=== PATIENT | male | born 1950 | race Caucasian/White ===

== ENCOUNTER 2018-03-11 09:18 | Inpatient (IN) ==
--- NOTE | 2018-03-11 09:27 | ED ---
HPI General Chief complaint: Stroke Alert Stated complaint: stoke alert Time Seen by Provider: 03/11/18 09:20 Source: patient and EMS Mode of arrival: EMS Limitations: physical limitation (Slurred speech) History of Present Illness HPI narrative: 67-year-old male patient with history of CAD hypertension, atrial fibrillation, presents to the ER today brought in by EMS because he was found on the side of the road, slurring his speech, left-sided weakness and decreased medical records specialist strength on the left side, and a stroke alert was called on scene. He states that he was fairly normal although not feeling well about 2 hours ago. He also complains of chest discomfort. He denies any fevers, vomiting, or other issues. He apparently had just come to visit [facility]. Related Data Home Medications Medication Instructions Recorded Confirmed atorvastatin 20 mg PO DAILY 03/11/18 03/11/18 diltiazem HCl 240 mg PO DAILY 03/11/18 03/11/18 gabapentin 300 mg PO TID 03/11/18 03/11/18 rivaroxaban [Xarelto] 20 mg PO DAILY 03/11/18 03/11/18 Allergies Allergy/AdvReac Type Severity Reaction Status Date / Time No Known Allergies Allergy Verified 03/11/18 09:31 Review of Systems ROS: all other systems reviewed are negative PMFSH History History Provided By: Patient Medical History Medical History High cholesterol (Acute) Afib (Acute) CAD (coronary artery disease) (Acute) HTN (hypertension) (Acute) Surgical History Surgical History Hx of shoulder surgery (Acute) Social History Social History Substance History: No History of Abuse Second Hand Smoke Exposure: No Smoking Status: Never smoker How Often Do You Have a Drink Containing Alcohol: Never Recent Travel in [facility] within the Last 8 Weeks: No Recent Out of Country Travel within the Last 8 Weeks: No Exam Narrative Exam Narrative: GENERAL: Well-developed elderly male patient currently in moderate distress. Awake, alert, oriented x3. Slurred speech. SKIN: Focused skin assessment warm/dry. HEAD: Atraumatic. Normocephalic. EYES: Pupils equal and round. No scleral icterus. No injection or drainage. ENT: No nasal bleeding or discharge. Mucous membranes pink and moist. NECK: Trachea midline. No JVD. CARDIOVASCULAR: Fast and irregularly irregular. Pulses are present and equal bilaterally. RESPIRATORY: No accessory muscle use. Clear to auscultation. Breath sounds equal bilaterally. GASTROINTESTINAL: Abdomen soft, non-tender, nondistended. Hepatic and splenic margins not palpable. MUSCULOSKELETAL: No obvious deformities. No clubbing. No cyanosis. No edema. NEUROLOGICAL: Awake and alert. Left facial droop. Left medical records specialist strength weakness. Slurred speech. PSYCHIATRIC: Appropriate mood and affect; insight and judgment normal. Course Initial Documented Vital Signs Temperature 97.8 F 03/11/18 09:18 Pulse Rate 138 H 03/11/18 09:18 Respiratory Rate 18 03/11/18 09:18 Blood Pressure 140/89 03/11/18 09:18 Pulse Oximetry 98 03/11/18 09:18 Last Documented Vital Signs Temperature 97.5 F L 03/11/18 11:30 Pulse Rate 98 H 03/11/18 11:30 Respiratory Rate 17 03/11/18 11:30 Blood Pressure 156/88 H 03/11/18 11:30 Pulse Oximetry 98 03/11/18 11:30 Medical Decision Making MDM Narrative Medical decision making narrative: On further questioning, patient admits that he is on Pradaxa and had taken it last night. As such, he would not be a TPA candidate. Patient is seen in the ER room with Dr. Mckeon and further testing including a CTA of the head neck have been ordered as well along with stroke protocol. In addition, considering that the patient is also complaining of chest pain and is having neurological deficits, there is concern of a dissection. I have also ordered a CT of the aorta out to rule out dissection as well. Initial CTs of the head and neck did not show obvious signs of causes of current neurological symptoms and case had been discussed with Dr. Kowalski who states that if a dissection is in consideration, the patient would need a second dose of contrast in order to get a CTA. Considering the possibility of morbidity and mortality of a missed dissection, further testing was done to rule out this acute process. At this point, patient will need further care, MRIs, workup, and case has been discussed with family practice resident service for admission. I have made them aware of the pending CTA of the aorta as well. Medical Screen Exam Complete: Yes Emergency Medical Condition: Yes Differential Diagnosis Differential Diagnosis: CVA versus ICH versus ACS versus dysrhythmias Lab Data Lab results reviewed: Yes I reviewed the patient's lab results. Result diagrams: 03/11/18 09:30 03/11/18 09:20 Lab Results 03/11/18 03/11/18 03/11/18 Range/Units 09:20 09:20 09:20 WBC (4.0-11.0) th/mm3 RBC (4.50-5.90) mil/mm3 Hgb (13.0-17.0) gm/dL POC Hgb (Calc) 13.9 (13.0-17.0) g/dL Hct (39.0-51.0) % POC Hct 41.0 (39-51.0) % MCV (80.0-100.0) fL MCH (27.0-34.0) pg MCHC (32.0-36.0) % RDW (11.6-17.2) % Plt Count (150-450) th/mm3 MPV (7.0-11.0) fL Neut % (Auto) (16.0-70.0) % Lymph % (Auto) (9.0-44.0) % Jefferson % (Auto) (0.0-8.0) % Eos % (Auto) (0.0-4.0) % Baso % (Auto) (0.0-2.0) % Neut # (Auto) (1.8-7.7) th/mm3 Lymph # (Auto) (1.0-4.8) th/mm3 Jefferson # (Auto) (0.0-0.9) th/mm3 Eos # (Auto) (0.0-0.4) th/mm3 Baso # (Auto) (0.0-0.2) th/mm3 WBC Differential Differential Comment ESR (0-20) mm/hr PT (9.8-11.6) sec INR Ratio APTT (23.4-31.7) sec POC Sodium 140 (137-144) mmol/L Sodium 140 (136-145) meq/L POC Potassium 3.7 (3.6-5.0) mmol/L Potassium 3.7 (3.5-5.1) meq/L POC Chloride 107 (102-111) mmol/L Chloride 106 (98-107) meq/L Carbon Dioxide 20.0 L (21.0-32.0) meq/L Anion Gap 14 (5-15) meq/L POC BUN 22 H (5-21) mg/dL BUN 27 H (7-18) mg/dL Creatinine 1.22 (0.60-1.30) mg/dL POC Creatinine 1.2 (0.6-1.3) mg/dL Estimated GFR 59 L (>89) mL/min POC Glucose 114 H (68-110) mg/dL Random Glucose 115 H (74-106) mg/dL Calcium 8.8 (8.5-10.1) mg/dL Total Creatine Kinase 200 (39-308) U/L CK-MB (CK-2) 2.0 (0.5-3.6) ng/mL Troponin I Less than 0.02 L (0.02-0.05) ng/mL Vitamin B12 359 (193-986) pg/mL TSH 0.614 (0.358-3.740) uIU/mL Free T4 1.16 (0.76-1.46) ng/dL 03/11/18 03/11/18 03/11/18 Range/Units 09:30 09:30 09:30 WBC 5.8 (4.0-11.0) th/mm3 RBC 4.48 L (4.50-5.90) mil/mm3 Hgb 13.8 (13.0-17.0) gm/dL POC Hgb (Calc) (13.0-17.0) g/dL Hct 41.5 (39.0-51.0) % POC Hct (39-51.0) % MCV 92.7 (80.0-100.0) fL MCH 30.7 (27.0-34.0) pg MCHC 33.2 (32.0-36.0) % RDW 14.7 (11.6-17.2) % Plt Count 168 (150-450) th/mm3 MPV 8.4 (7.0-11.0) fL Neut % (Auto) 76.0 H (16.0-70.0) % Lymph % (Auto) 12.7 (9.0-44.0) % Jefferson % (Auto) 10.5 H (0.0-8.0) % Eos % (Auto) 0.2 (0.0-4.0) % Baso % (Auto) 0.6 (0.0-2.0) % Neut # (Auto) 4.4 (1.8-7.7) th/mm3 Lymph # (Auto) 0.7 L (1.0-4.8) th/mm3 Jefferson # (Auto) 0.6 (0.0-0.9) th/mm3 Eos # (Auto) 0.0 (0.0-0.4) th/mm3 Baso # (Auto) 0.0 (0.0-0.2) th/mm3 WBC Differential . Differential Comment Auto diff final ESR 8 (0-20) mm/hr PT 11.3 (9.8-11.6) sec INR 1.1 Ratio APTT 30.0 (23.4-31.7) sec POC Sodium (137-144) mmol/L Sodium (136-145) meq/L POC Potassium (3.6-5.0) mmol/L Potassium (3.5-5.1) meq/L POC Chloride (102-111) mmol/L Chloride (98-107) meq/L Carbon Dioxide (21.0-32.0) meq/L Anion Gap (5-15) meq/L POC BUN (5-21) mg/dL BUN (7-18) mg/dL Creatinine (0.60-1.30) mg/dL POC Creatinine (0.6-1.3) mg/dL Estimated GFR (>89) mL/min POC Glucose (68-110) mg/dL Random Glucose (74-106) mg/dL Calcium (8.5-10.1) mg/dL Total Creatine Kinase (39-308) U/L CK-MB (CK-2) (0.5-3.6) ng/mL Troponin I (0.02-0.05) ng/mL Vitamin B12 (193-986) pg/mL TSH (0.358-3.740) uIU/mL Free T4 (0.76-1.46) ng/dL Imaging Data Attestation: I personally reviewed and interpreted this imaging study as follows : Radiologist's impression: Head CT 03/11/18 09:21 CONCLUSION: 1. The exam demonstrates small areas of decreased attenuation involving the brainstem and hailey most consistent with subacute areas of cortical infarct. 2. No acute intracranial hemorrhage identified. Report was called by [Dr. Kowalski to Dr. Aguila.at 9:45 ] Head CTA 03/11/18 09:27 CONCLUSION: 1. No large vessel occlusions. 2. Suspect more proximal right vertebral artery hemodynamically significant lesion. Report was called by Dr. Martinez to Dr. Mckeon at 0958 AM. Neck CTA 03/11/18 09:27 CONCLUSION: 1. Bilateral calcified carotid plaques without evidence of hemodynamically significant stenosis. 2. Dominant left vertebral artery. 3. No flow in the right vertebral artery. Chest X-Ray 03/11/18 09:29 CONCLUSION: 1. No acute abnormality. Discharge Plan Discharge Disposition Patient Disposition: 30 Still Patient Discharge Condition Condition: Critical Discharge Details Anticipated Discharge Date: 03/11/18 Diagnosis: Acute CVA (cerebrovascular accident) Physicians Team ED Provider: Mingo Mclaughlin Primary Care Provider: UNKNOWN, Rxs /Orders / Referrals /Forms Prescriptions: No Action atorvastatin 20 mg Tablet 20 mg PO DAILY RF: 0 diltiazem HCl 240 mg Capsule,Extended Release 24 Hr 240 mg PO DAILY RF: 0 gabapentin 300 mg Capsule 300 mg PO TID RF: 0 rivaroxaban [Xarelto] 20 mg Tablet 20 mg PO DAILY RF: 0 Status ED Status: With Doctor
--- NOTE | 2018-03-11 10:02 | CT ---
EXAM DATE: 03/11/2018 9:52 AM EST AGE/SEX: 67 years / Male INDICATIONS: Stroke alert, left sided weakness CLINICAL DATA: This is the patient's initial encounter. Patient reports that signs and symptoms have been present for 1 day and indicates a pain score of 0/10. MEDICAL/SURGICAL HISTORY: Cerebrovascular disease. Hypertension. None. RADIATION DOSE: 10.5 CTDI (mGy) ; Combined studies COMPARISON: [facility] [place], [place] HEAD W/O CONTRAST, 03/11/2018. . TECHNIQUE: Volumetric scanning was performed using a multi-row detector CT scanner during bolus infu jose of 95 ml Visipaque 320 (iodixanol) nonionic water-soluble contrast as a cumulative dose for [facility] tiple exams. The data was post processed with a variety of visualization algorithms including full volume maximum intensity projection, multi-planar sliding thin slab reformation, curved planar reform ation, and surface rendering techniques. Using automated exposure control and adjustment of the mA a nd/or kV according to patient size, radiation dose was kept as low as reasonably achievable to obtain optimal diagnostic quality images. DICOM format image data is available electronically for review a nd comparison. FINDINGS: Anterior Circulation: Intracranial Carotid Arteries: Patent. YUSUF: Hypoplastic right A1 segment. There is no evidence for aneurysm, vessel truncation or stenosis, and no evidence for vascular malformation. MCA: There is no evidence for aneurysm, vessel truncation or stenosis, and no evidence for vascular m alformation. Posterior Circulation: Distal Vertebral Arteries: Dominant left vertebral artery. The right vertebral artery is not well dem onstrated proximal to the vertebrobasilar junction. Basilar Artery: There is no evidence for aneurysm, vessel truncation or stenosis, and no evidence for vascular malformation. CRYPTOGRAPHY TEACHER and Cerebellar Branches: origin of the right CRYPTOGRAPHY TEACHER. There is no evidence for aneurysm, vessel truncation or stenosis, and no evidence for vascular malformation. CONCLUSION: 1. No large vessel occlusions. 2. Suspect more proximal right vertebral artery hemodynamically significant lesion. Report was called by Dr. Martinez to Dr. Mckeon at 0958 AM. Electronically signed by: Reese Puga MD 03/11/2018 10:00 AM EST
[2018-03-11 10:04] LABS: Anion Gap 14 meq/L (5-15); Blood Urea Nitrogen 27 mg/dL (7-18); Calcium 8.8 mg/dL (8.5-10.1); Chloride 106 meq/L (98-107); Glomerular Filtration Rate 59 mL/min (>89); Glucose,Random 115 mg/dL (74-106); Potassium 3.7 meq/L (3.5-5.1); Sodium 140 meq/L (136-145)
[2018-03-11 10:09] LABS: Creatine Kinase 200 U/L (39-308)
--- NOTE | 2018-03-11 10:09 | CT ---
EXAM DATE: 03/11/2018 9:37 AM EST AGE/SEX: 67 years / Male INDICATIONS: Stroke alert, left sided weakness CLINICAL DATA: This is the patient's initial encounter. Patient reports that signs and symptoms have been present for 1 day and indicates a pain score of 0/10. MEDICAL/SURGICAL HISTORY: Cerebrovascular disease. Hypertension. None. RADIATION DOSE: 56.35 CTDI (mGy) COMPARISON: [facility], CTA THOR ABD AORTA W CONTRAST W 3D, 03/11/2018. . TECHNIQUE: CT of the head without contrast. Using automated exposure control and adjustment of the mA and/or kV according to patient size, radiation dose was kept as low as reasonably achievable to ob tain optimal diagnostic quality images. DICOM format image data is available electronically for revi ew and comparison. FINDINGS: The ventricular system is normal in size and configuration. There is no acute intracranial hemorrhage . There is decreased attenuation in the periventricular white matter most consistent with advanced mi crovascular ischemic demyelinative change. No mass lesion is identified. No abnormal extra-axial flui d collections are seen. Imaging through the posterior fossa demonstrates areas of decreased attenuation involving the central aspect of the brainstem and a small area within the left side of the hailey. These findings would be m ost consistent with subacute areas of cortical infarct. CONCLUSION: 1. The exam demonstrates small areas of decreased attenuation involving the brainstem and hailey most consistent with subacute areas of cortical infarct. 2. No acute intracranial hemorrhage identified. Report was called by [Dr. Kowalski to Dr. Aguila.at 9:45 ] Electronically signed by: Reji Kowalski MD 03/11/2018 10:07 AM EST
--- NOTE | 2018-03-11 10:13 | CT ---
EXAM DATE: 03/11/2018 10:07 AM EST AGE/SEX: 67 years / Male INDICATIONS: Stroke alert, left sided weakness CLINICAL DATA: This is the patient's initial encounter. Patient reports that signs and symptoms have been present for 1 day and indicates a pain score of 0/10. MEDICAL/SURGICAL HISTORY: Cerebrovascular disease. Hypertension. None. RADIATION DOSE: 10.5 CTDI (mGy) COMPARISON: [facility] [place] HEAD W CONTRAST W 3D, 03/11/2018. . TECHNIQUE: Volumetric scanning was performed using a multirow detector CT scanner during bolus infus ion of 95 ml Visipaque 320 (iodixanol) nonionic water-soluble contrast as a cumulative dose for mult iple exams. The data was postprocessed with a variety of visualization algorithms including full-vo lume maximum intensity projection, multiplanar sliding thin-slab reformation, curved-planar reformati on, and surface-rendering techniques. Using automated exposure control and adjustment of the mA and/ or kV according to patient size, radiation dose was kept as low as reasonably achievable to obtain op timal diagnostic quality images. DICOM format image data is available electronically for review and comparison. FINDINGS: Aortic Arch: There is a three-vessel origin of the great vessels from the aorta. No evidence of ost ial narrowing Right Carotid: Eccentric calcified plaque is identified in the proximal internal carotid artery. The common, external and internal carotid arteries are otherwise widely patent without significant steno sis. Left Carotid: Eccentric calcified plaque is identified in the left carotid bifurcation and proximal internal carotid artery. There is no evidence of significant stenosis. Vertebrals: The left vertebral artery is dominant. No flow is identified in the cervical segment of the right vertebral artery. Percent stenosis is calculated using the diameter of the stenotic region over the diameter of the nor mal distal internal carotid artery. CONCLUSION: 1. Bilateral calcified carotid plaques without evidence of hemodynamically significant stenosis. 2. Dominant left vertebral artery. 3. No flow in the right vertebral artery. Electronically signed by: Domenico Cnanon MD 03/11/2018 10:12 AM EST
[2018-03-11] MEDS ORDERED: Sod Chloride 0.9% Inj 1,000 ML IV.SIG SCH (10:15)
[2018-03-11 10:42] LABS: Baso % (Auto) 0.6 % (0.0-2.0); Eos % (Auto) 0.2 % (0.0-4.0); Hematocrit 41.5 % (39.0-51.0); Hemoglobin 13.8 gm/dL (13.0-17.0); Lymph # (Auto) 0.7 th/mm3 (1.0-4.8); Lymph % (Auto) 12.7 % (9.0-44.0); Mean Corpuscular HGB Conc 33.2 % (32.0-36.0); Mean Corpuscular Hemoglobin 30.7 pg (27.0-34.0); Mean Corpuscular Volume 92.7 fL (80.0-100.0); Mean Platelet Volume 8.4 fL (7.0-11.0); Mono # (Auto) 0.6 th/mm3 (0.0-0.9); Mono % (Auto) 10.5 % (0.0-8.0); Neut # (Auto) 4.4 th/mm3 (1.8-7.7); Platelet Count 168 th/mm3 (150-450); Red Blood Count 4.48 mil/mm3 (4.50-5.90); Red Cell Distribution Width 14.7 % (11.6-17.2); White Blood Count 5.8 th/mm3 (4.0-11.0)
[2018-03-11 10:49] LABS: INR 1.1 Ratio; Prothrombin Time 11.3 sec (9.8-11.6)
--- NOTE | 2018-03-11 10:54 | XR ---
EXAM DATE: 03/11/2018 10:41 AM EST AGE/SEX: 67 years / Male INDICATIONS: Stroke alert. CLINICAL DATA: This is the patient's initial encounter. Patient reports that signs and symptoms have been present for 1 day and indicates a pain score of Nonresponsive. MEDICAL/SURGICAL HISTORY: Cerebrovascular disease. Hypertension. None. COMPARISON: No prior exams available for comparison. FINDINGS: No significant new focal pleural or parenchymal opacities. The cardiomediastinal contours are unremar kable. Osseous structures are intact. CONCLUSION: 1. No acute abnormality. Electronically signed by: Reese Puga MD 03/11/2018 10:53 AM EST
--- NOTE | 2018-03-11 10:57 | MB ---
cc: Donald Mckeon MD DATE: 03/11/2018 HISTORY OF PRESENT ILLNESS: A 67-year-old right-handed man with hypertension, OK, on Xarelto for atrial fibrillation, which he does take and he says he has been taking every day, although initially said twice a day. He does have a card of Xarelto, a med card, and he says he has been taking it, and there is 1 missing there. He says he just threw out the other card because he had been taking them, so it appears that he has been compliant on that. He says he has some slight renal insufficiency. Nevertheless, about 2 hours ago he began to get weak on the left side, and he was evidently found on the sidewalk. He just came in town last night, on a bus, so he did not sleep anywhere locally last night. He is from [place], where he lives with his son. He does complain of some chest pain and a headache. He was found to have left-sided weakness. REVIEW OF SYSTEMS: He denied any CABG or stent, diabetes, hypercholesterolemia, hepatic, pulmonary disease, thyroid disease, lupus, ulcer, cancer, seizure. He tells me he has had 2 prior strokes with weakness on the left side, with almost full recovery. He can usually walk well. SOCIAL HISTORY: He is not a smoker or drinker. He lives with his son in [place]. FAMILY HISTORY: Negative cancer, seizure, or stroke. MEDICATIONS AT HOME: 1. Gabapentin 300 t.i.d. 2. Xarelto 20 a day. 3. Atorvastatin. 4. Diltiazem. ALLERGIES: NO KNOWN DRUG ALLERGIES. PHYSICAL EXAMINATION: Vital Signs: Atrial fibrillation with rapid ventricular response, 140/80, 18. Neck: There were no carotid bruits. Heart: Regular rate and rhythm. I did not detect a murmur. Neurologic: Pupils are equal. It is hard to say about his visual thomas, he appears not to see to the left, though he does not count properly to the right. His face, he actually moves the left side of his face a little bit more than the right. His tongue, he cannot really stick out for me due to tremors in his mouth. He moves his right side well with normal strength on the right upper and lower extremity. It is about 0/5 in the left upper and lower extremity. The left toe is down, the right is down. DTRs are absent throughout. Pinprick is diminished on the left side. He appears to have possibly some left neglect. Eyes are midline. LABORATORY DATA: Labs are pending. IMAGING STUDIES: A CAT scan of the brain shows some white matter changes, an old left anterior temporal encephalomalacia, whether it could have been an old stroke or a cyst, is unclear. No hyperdense MCA sign is seen. CTA is pending. IMPRESSION: It looks like a right middle cerebral artery infarct. We are doing a CTA now. He has been on Xarelto, so cannot get any IV TPA. I would put his NIH stroke scale at 15. MD ASH Ocasio/kevin , 09:40 AM , 09:46 AM
[2018-03-11 11:49] LABS: Free T4 (Free Thyroxine) 1.16 ng/dL (0.76-1.46); Thyroid Stimulating Hormone 0.614 uIU/mL (0.358-3.740)
[2018-03-11] MEDS ORDERED: Morphine Inj 4 MG/ML Vial IV.PUSH ONE (12:39)
[2018-03-11] MEDS ORDERED: Gadobutrol PF 10 MMOL/10 ML Vial (for RAD) IV.SIG ONE (13:11)
[2018-03-11] MEDS ORDERED: Bisacodyl 10 MG Supp RECTAL PRN (13:50)
--- NOTE | 2018-03-11 13:55 | P.HPFP ---
History of Present Illness Primary Care Physician: UNKNOWN <Artis Jung Junie - 03/12/18 22:45> UNKNOWN <Iam Tenorio Lidia - 03/11/18 13:55> Chief Complaint: evaluation for stroke <Iam Tenorio - 03/11/18 19:47> History of Present Illness: Patient is a 67-year-old male with past medical history of A. fib on Xarelto, prior VA and prior CVA and lower back pain presenting to the ED after suffering a fall and developing slurred speech and left-sided weakness. History limited to patient's ability to answer question due to slurred speech. Patient reports that he was walking and noticed pain on his head and then fell injuring his neck and back. After the fall patient noted to have slurred speech and left-sided weakness. Patient was found on the sidewalk. He is able to answer yes/no questions. He is alert and oriented x3. Endorses pain of left side of abdomen, neck, back, hips and shoulders. Denies any chest pain, fever, chills, dizziness, or seizures. Patient is very tearful and upset with current status. He reports he is not able to urinate and this is a new issue for him. Endorses blurry vision worse on left side. He reports he is not having any difficulties breathing and is able to tolerate secretions. Once patient arrived to the ED stroke alert was called. CT head was negative for bleeding. Of note patient is not a TPA candidate due to being on Xarelto. <Iam Tenorio Lidia - 03/11/18 19:47> - Diagnosis (1) Acute CVA (cerebrovascular accident) (2) Atrial fibrillation (3) Hypertension (4) Urinary retention (5) Back pain (6) Nutrition, metabolism, and development symptoms <Iam Tenorio Lidia - 03/11/18 18:54> (1) Left-sided weakness (2) Compression fracture (3) Urinary retention (4) Atrial fibrillation (5) Hypertension (6) Nutrition, metabolism, and development symptoms <Artis Jung Junie - 03/12/18 22:45> Inpatient Certification: I certify that the inpatient services were ordered in accordance with Medicare regulations governing the order. This includes certification that hospital inpatient services are reasonable and necessary and in the case of services not specified as inpatient-only under 42 CFR 419.22(n), that they are appropriately provided as inpatient services in accordance to with the 2-midnight benchmark under 43 CFR 412.3(e) <Artis Jung - 03/12/18 22:45> Review of Systems All other systems reviewed negative except as stated in HPI <Iam Tenorio 03/11/18 19:47> PMFSH - History History Provided By: Patient <Iam Tenorio 03/11/18 13:55> - Medical History Medical History: Medical History (Last Reviewed 03/11/18 @ 15:31 by Artis Carreon) High cholesterol Afib CAD (coronary artery disease) HTN (hypertension) <Artis Jung 03/12/18 22:45> Medical History (Last Reviewed 03/11/18 @ 15:31 by Artis Carreon) High cholesterol Afib CAD (coronary artery disease) HTN (hypertension) <Iam Tenorio 03/11/18 19:47> - Surgical History Surgical History: Surgical History (Last Reviewed 03/11/18 @ 15:31 by Artis Carreon) Hx of shoulder surgery <Artis Jung 03/12/18 22:45> Surgical History (Last Reviewed 03/11/18 @ 15:31 by Artis Carreon) Hx of shoulder surgery <Iam Tenorio 03/11/18 19:47> - Tobacco History Second Hand Smoke Exposure: No <Iam Tenorio 03/11/18 13:55> Smoking Status: Never smoker <Iam Tenorio 03/11/18 13:55> - Alcohol History How Often Do You Have a Drink Containing Alcohol: Never <Iam Tenorio 11/19 13:55> - Substance Use History Substance History: No History of Abuse <Iam Tenorio 03/11/18 13:55> - Travel History Recent Travel in the [place] Within the Last 8 Weeks: No <Iam Tenorio 13:55> Recent Travel Out of the Country Within the Last 8 Weeks: No <Iam Tenorio 03/11/18 13:55> - Immunization History Tetanus Immunization: >5 Years <Iam Tenorio 03/11/18 13:55> Medications and Allergies Allergies Allergy/AdvReac Type Severity Reaction Status Date / Time No Known Allergies Allergy Verified 03/11/18 09:31 <Artis Jung Junie - 03/12/18 22:45> Home Medications Medication Instructions Recorded Confirmed Type atorvastatin 20 mg PO DAILY 03/11/18 03/11/18 History diltiazem HCl 240 mg PO DAILY 03/11/18 03/11/18 History gabapentin 300 mg PO TID 03/11/18 03/11/18 History rivaroxaban [Xarelto] 20 mg PO DAILY 03/11/18 03/11/18 History <Artis Jung - 03/12/18 22:45> Active Medications: Active Medications Al Hydroxide/Mg Hydroxide (Milk Of Magnesia Liq) 30 ml PO Q12H PRN PRN Reason: Mild Constipation Atorvastatin Calcium (Lipitor) 40 mg PO DAILY [facility] Last Admin: 03/11/18 15:23 Dose: Not Given Bisacodyl (Dulcolax Supp) 10 mg RECTAL DAILY PRN PRN Reason: SEVERE CONSITIPATION Calcitonin Tensed (Calcitonin Tensed Nasal) 1 sprays NASAL DAILY [facility] Last Admin: 03/12/18 14:00 Dose: 1 sprays Clonidine HCl (Catapres) 0.1 mg PO Q6H PRN PRN Reason: SEE LABEL COMMENTS Diltiazem HCl (Cardizem Cd 24hr) 240 mg PO DAILY [facility] Last Admin: 03/12/18 14:58 Dose: 240 mg Sodium Chloride (Ns Inj) 1,000 mls @ 80 mls/hr IV.CONT .[id number] [facility] Last Admin: 03/12/18 16:15 Dose: 80 mls/hr Dextrose/Sodium Chloride (D5w/Normal Saline Inj) 1,000 mls @ 80 mls/hr IV.CONT .[id number] [facility] Last Infusion: 03/12/18 16:16 Dose: Infused Lactulose (Lactulose Liq) 30 ml PO DAILY PRN PRN Reason: SEVERE CONSITIPATION Metoprolol Tartrate (Lopressor Inj) 5 mg IV.PUSH Q5M PRN PRN Reason: for HR>120 Morphine Sulfate (Morphine Inj) 4 mg IV.PUSH Q3H PRN PRN Reason: BREAKTHROUGH PAIN Last Admin: 03/12/18 22:17 Dose: 4 mg Naloxone HCl (Narcan Inj) 0.4 mg IV.PUSH UNSCH PRN PRN Reason: SEE LABEL COMMENTS Ondansetron HCl (Zofran Inj) 4 mg IV.PUSH Q6H PRN PRN Reason: NAUSEA OR VOMITING Oxycodone HCl (Roxicodone) 5 mg PO Q8H PRN PRN Reason: PAIN SCALE 6 TO 10 Last Admin: 03/12/18 14:58 Dose: 5 mg Rivaroxaban (Xarelto) 20 mg PO BID [facility] Last Admin: 03/12/18 14:58 Dose: 20 mg Senna/Docusate Sodium (Gabby-Colace) 1 tab PO BID [facility] Last Admin: 03/12/18 22:18 Dose: 1 tab Sennosides (Senokot) 17.2 mg PO Q12H PRN PRN Reason: Moderate Constipation Sodium Chloride (Ns Flush) 2 ml IV.FLUSH PRN PRN PRN Reason: FLUSH AFTER USING IV ACCESS Last Admin: 03/11/18 10:16 Dose: 2 ml <Artis Jung L - 03/12/18 22:45> Active Medications Sodium Chloride (Ns Flush) 2 ml IV.FLUSH PRN PRN PRN Reason: FLUSH AFTER USING IV ACCESS Last Admin: 03/11/18 10:16 Dose: 2 ml <Iam Tenorio D - 03/11/18 13:55> Exam Vital signs: Vital Signs 03/11/18 23:00 03/11/18 23:34 03/11/18 23:41 Temperature Pulse Rate 96 H 110 H Respiratory Rate 18 29 H 14 Blood Pressure 181/99 H 191/109 H Pulse Oximetry 97 100 03/11/18 23:43 03/11/18 23:58 03/12/18 00:00 Temperature 97.9 F Pulse Rate 97 H 99 H 95 H Respiratory Rate 27 H 30 H 24 Blood Pressure 213/107 H 164/94 H 172/91 H Pulse Oximetry 100 98 99 03/12/18 01:00 03/12/18 02:00 03/12/18 02:18 Temperature Pulse Rate 88 84 88 Respiratory Rate 21 15 13 Blood Pressure 178/93 H 181/90 H 152/94 H Pulse Oximetry 97 98 97 03/12/18 03:00 03/12/18 04:00 03/12/18 04:02 Temperature 97.9 F Pulse Rate 92 H 86 84 Respiratory Rate 16 15 16 Blood Pressure 162/101 H 167/108 H 187/105 H Pulse Oximetry 99 95 03/12/18 04:21 03/12/18 05:00 03/12/18 05:13 Temperature Pulse Rate 84 80 80 Respiratory Rate 16 10 L 9 L Blood Pressure 161/101 H 176/105 H 172/104 H Pulse Oximetry 98 98 03/12/18 06:00 03/12/18 06:07 03/12/18 06:18 Temperature Pulse Rate 92 H 95 H Respiratory Rate 17 18 27 H Blood Pressure 185/89 H 163/106 H Pulse Oximetry 98 95 03/12/18 06:23 03/12/18 07:00 03/12/18 07:03 Temperature Pulse Rate 94 H 86 85 Respiratory Rate 23 20 11 L Blood Pressure 175/104 H 193/113 H 180/121 H Pulse Oximetry 97 97 99 03/12/18 07:32 03/12/18 08:00 03/12/18 08:22 Temperature 98.3 F Pulse Rate 126 H 115 H Respiratory Rate 29 H 26 H Blood Pressure 194/91 H 167/88 H Pulse Oximetry 98 97 03/12/18 08:38 03/12/18 09:00 03/12/18 09:11 Temperature Pulse Rate 113 H 107 H Respiratory Rate 17 16 Blood Pressure 159/87 H Pulse Oximetry 98 03/12/18 10:30 03/12/18 11:00 03/12/18 11:06 Temperature Pulse Rate 108 H 126 H 119 H Respiratory Rate 26 H 15 Blood Pressure 148/94 H Pulse Oximetry 99 95 96 03/12/18 11:30 03/12/18 12:00 03/12/18 12:30 Temperature 98.2 F Pulse Rate 108 H 105 H 96 H Respiratory Rate 13 16 16 Blood Pressure 160/105 H 150/86 H 150/99 H Pulse Oximetry 98 98 98 03/12/18 13:00 03/12/18 13:30 03/12/18 14:00 Temperature Pulse Rate 110 H 114 H 123 H Respiratory Rate 18 17 19 Blood Pressure 152/83 H 177/90 H Pulse Oximetry 98 98 98 03/12/18 14:30 03/12/18 14:57 03/12/18 15:00 Temperature Pulse Rate 145 H 117 H Respiratory Rate 30 H 16 15 Blood Pressure 136/80 141/81 H Pulse Oximetry 79 L 98 03/12/18 15:30 03/12/18 15:51 03/12/18 15:57 Temperature 98.3 F Pulse Rate 109 H 111 H Respiratory Rate 19 16 20 Blood Pressure 133/90 Pulse Oximetry 99 98 03/12/18 16:00 03/12/18 16:14 03/12/18 20:00 Temperature 98.1 F Pulse Rate 90 Respiratory Rate 38 H 12 18 Blood Pressure 156/91 H 159/92 H Pulse Oximetry 86 L 99 Intake & Output 03/12/18 03/12/18 03/13/18 06:59 18:59 06:59 Intake Total 1200 / 1200 1000 / 1000 Output Total 1050 / 1050 275 / 275 Balance 150 / 150 1000 / 1000 -275 / -275 Weight 80.7 kg Intake: IV 1200 / 1200 1000 / 1000 NS Inj 1,000 ML @ 80 mls/hr IV. 1000 / 1000 450 / 450 CONT .[id number] ANIKET Rx#:[id number] Ofirmev Inj 1,000 mg In 100 ml 200 / 200 100 / 100 @ 400 mls/hr IV.SIG Q6H ANIKET Rx# :[id number] Oral 0 / 0 Output: Urine 275 / 275 Urine Amount (Catheter) 1050 / 1050 Indwelling Urethral Catheter 1050 / 1050 Other: Date of Last Bowel Movement 03/10/18 03/10/18 03/10/18 Weight On Admission 80.7 kg <Artis Jung L - 03/12/18 22:45> Vital Signs 03/11/18 09:18 03/11/18 09:38 03/11/18 10:12 Temperature 97.8 F 97.9 F 97.8 F Pulse Rate 138 H 118 H 116 H Respiratory Rate 18 18 17 Blood Pressure 140/89 156/88 H 166/85 H Pulse Oximetry 98 98 98 03/11/18 10:30 03/11/18 11:00 03/11/18 11:30 Temperature 97.7 F 97.8 F 97.5 F L Pulse Rate 104 H 96 H 98 H Respiratory Rate 20 17 17 Blood Pressure 158/90 H 156/93 H 156/88 H Pulse Oximetry 98 98 98 03/11/18 12:47 03/11/18 13:10 Temperature 97.7 F Pulse Rate 103 H Respiratory Rate 16 16 Blood Pressure 157/86 H Pulse Oximetry 98 Intake & Output 03/10/18 03/11/18 03/11/18 18:59 06:59 18:59 Intake Total 1000 / 1000 Balance 1000 / 1000 Weight 87.1 kg Intake: IV 1000 / 1000 NS Inj 1,000 ML @ 1000 mls/hr 1000 / 1000 IV.SIG BOLUS ANIKET Rx#:[id number] <KashifrniaIam 03/11/18 13:55> - Constitutional moderate distress, average body habitus <[facility] 03/11/18 19:47> - Routine HEENT Exam Head: Present: normocephalic. Absent: abrasion, laceration <[facility] 03/11/18 19:47> Eye: Present: conjunctivae pink. Absent: EOMI, nystagmus <[facility] 03/11/18 19:47> ENT: Present: mucous membranes moist, oropharynx clear <[facility] 11/19 19:47> - Routine Neck Exam Absent: full ROM, JVD <[facility] 03/11/18 19:47> Comments: Limited range of motion possibly due to pain <[facility] 03/11/18 19:47> - Routine Chest/Breast/Axilla Exam Chest wall: Absent: tenderness <[facility] 03/11/18 19:47> - Routine Respiratory Exam Present: CTA bilaterally (Auscultated anteriorly). Absent: accessory muscle use , crackles <[facility] 03/11/18 19:47> - Routine Cardiovascular Exam Present: S1, S2, irregular rhythm, irregularly irregular. Absent: murmur, gallop, rubs <[facility] 03/11/18 19:47> - Routine Abdominal Exam Present: soft, normoactive bowel sounds, tenderness (Tender to palpation on left upper quadrant and left lower quadrant). Absent: distended <[facility] silverio 03/11/18 19:47> - Routine Extremities Exam Present: pulses intact, normal capillary refill. Absent: cyanosis, clubbing, edema, full ROM, calf tenderness <Iam Tenorio Lidia - 03/11/18 19:47> Comments: Complete left-sided weakness Patient able to move right side of body (upper and lower extremity) however still at 2/5 muscle strength with trembling when movement is attempted. Normal right-sided plantar and dorsiflexion on LE Normal sensation on right lower and upper extremity Sensory deficit on left side of body. <KashifrinaIam Lidia - 03/11/18 19:47> - Routine Skin Exam Present: intact. Absent: cyanosis <KerriIam Lidia - 03/11/18 19:47> - Routine Neurological Exam Present: oriented X3, sensory deficit (Left-sided sensory deficit), motor deficit (Left-sided ), facial asymmetry (Left-sided labial droop). Absent: CN II-XII intact (Left-sided deficit), normal reflexes, altered mental status, moving all extremities, nystagmus, vision grossly intact (Blurred vision worse on left side), normal speech (Slurred speech) <KerriIam Lidia - 03/11/18 19: 47> Results - Labs Result diagrams: 03/12/18 05:43 03/12/18 05:43 <Artis Jung - 03/12/18 22:45> Abnormal lab results 03/12/18 03/12/18 Range/Units 05:43 05:43 Plt Count 145 L (150-450) th/mm3 Archer % (Auto) 12.9 H (0.0-8.0) % Random Glucose 59 L (74-106) mg/dL Calcium 8.4 L (8.5-10.1) mg/dL Total Bilirubin 1.1 H (0.2-1.0) mg/dL Direct Bilirubin 0.3 H (0.0-0.2) mg/dL Short CBC 03/12/18 Range/Units 05:43 WBC 5.5 (4.0-11.0) th/mm3 Hgb 14.4 (13.0-17.0) gm/dL Hct 42.3 (39.0-51.0) % Plt Count 145 L (150-450) th/mm3 BMP 03/12/18 05:43 Sodium 142 Potassium 3.9 Chloride 107 Carbon Dioxide 24.5 BUN 17 Creatinine 0.79 Calcium 8.4 L Cardiac Enzymes 03/12/18 Range/Units 05:43 Total Creatine Kinase 249 (39-308) U/L Liver Function 03/12/18 Range/Units 05:43 Total Bilirubin 1.1 H (0.2-1.0) mg/dL Direct Bilirubin 0.3 H (0.0-0.2) mg/dL AST 23 (15-37) U/L ALT 18 (12-78) U/L Alkaline Phosphatase 111 (45-117) U/L Albumin 3.4 (3.4-5.0) g/dL <Artis Jung L - 03/12/18 22:45> Abnormal lab results 03/11/18 03/11/18 03/11/18 Range/Units 09:20 09:20 09:30 RBC 4.48 L (4.50-5.90) mil/mm3 Neut % (Auto) 76.0 H (16.0-70.0) % Archer % (Auto) 10.5 H (0.0-8.0) % Lymph # (Auto) 0.7 L (1.0-4.8) th/mm3 Carbon Dioxide 20.0 L (21.0-32.0) meq/L POC BUN 22 H (5-21) mg/dL BUN 27 H (7-18) mg/dL Estimated GFR 59 L (>89) mL/min POC Glucose 114 H (68-110) mg/dL Random Glucose 115 H (74-106) mg/dL Troponin I Less than 0.02 L (0.02-0.05) ng/mL Short CBC 03/11/18 Range/Units 09:30 WBC 5.8 (4.0-11.0) th/mm3 Hgb 13.8 (13.0-17.0) gm/dL Hct 41.5 (39.0-51.0) % Plt Count 168 (150-450) th/mm3 BMP 03/11/18 09:20 Sodium 140 Potassium 3.7 Chloride 106 Carbon Dioxide 20.0 L BUN 27 H Creatinine 1.22 Calcium 8.8 Cardiac Enzymes 03/11/18 Range/Units 09:20 Total Creatine Kinase 200 (39-308) U/L CK-MB (CK-2) 2.0 (0.5-3.6) ng/mL Troponin I Less than 0.02 L (0.02-0.05) ng/mL <Iam Tenorio - 03/11/18 13:55> - Imaging Impressions Head MRI 03/12/18 10:00 CONCLUSION: No acute intracranial findings. No significant interval change. Left temporal lobe encephalomalacia again seen. <Artis Jung Junie - 03/12/18 22:45> Impressions Head CT 03/11/18 09:21 CONCLUSION: 1. The exam demonstrates small areas of decreased attenuation involving the brainstem and hailey most consistent with subacute areas of cortical infarct. 2. No acute intracranial hemorrhage identified. Report was called by [Dr. Kowalski to Dr. Aguila.at 9:45 ] Head CTA 03/11/18 09:27 CONCLUSION: 1. No large vessel occlusions. 2. Suspect more proximal right vertebral artery hemodynamically significant lesion. Report was called by Dr. Martinez to Dr. Mckeon at 0958 AM. Neck CTA 03/11/18 09:27 CONCLUSION: 1. Bilateral calcified carotid plaques without evidence of hemodynamically significant stenosis. 2. Dominant left vertebral artery. 3. No flow in the right vertebral artery. Chest X-Ray 03/11/18 09:29 CONCLUSION: 1. No acute abnormality. <Iam Tenorio - 03/11/18 13:55> Caprini VTE Risk Assessment Caprini VTE Risk Assessment: Moderate/High Risk (score >= 2) <Iam Tenorio - 03/11/18 19:47> Caprini Risk Assessment Model: Point Value = 1 Point Value = 2 Point Value = 3 Point Value = 5 Age 41-60 Minor surgery BMI > 25 kg/m2 Swollen legs Varicose veins or History of unexplained or recurrent spontaneous Oral contraceptives or hormone replacement Sepsis (< 1 month) Serious lung disease, including pneumonia (< 1 month) Abnormal pulmonary function Acute myocardial infarction Congestive heart failure (< 1 month) History of inflammatory bowel disease Medical patient at bed rest Age 61-74 Arthroscopic surgery Major open surgery (> 45 min) Laparoscopic surgery (> 45 min) Malignancy Confined to bed (> 72 hours) Immobilizing plaster cast Central venous access Age >= 75 History of VTE Family history of VTE Factor V Leiden Prothrombin [id number] Lupus anticoagulant Anticardiolipin antibodies Elevated serum homocysteine Heparin-induced thrombocytopenia Other congenital or acquired thrombophilia Stroke (< 1 month) Elective arthroplasty Hip, pelvis, or leg fracture Acute spinal cord injury (< 1 month) <Artis Jung L - 03/12/18 22:45> Point Value = 1 Point Value = 2 Point Value = 3 Point Value = 5 Age 41-60 Minor surgery BMI > 25 kg/m2 Swollen legs Varicose veins or History of unexplained or recurrent spontaneous Oral contraceptives or hormone replacement Sepsis (< 1 month) Serious lung disease, including pneumonia (< 1 month) Abnormal pulmonary function Acute myocardial infarction Congestive heart failure (< 1 month) History of inflammatory bowel disease Medical patient at bed rest Age 61-74 Arthroscopic surgery Major open surgery (> 45 min) Laparoscopic surgery (> 45 min) Malignancy Confined to bed (> 72 hours) Immobilizing plaster cast Central venous access Age >= 75 History of VTE Family history of VTE Factor V Leiden Prothrombin [id number] Lupus anticoagulant Anticardiolipin antibodies Elevated serum homocysteine Heparin-induced thrombocytopenia Other congenital or acquired thrombophilia Stroke (< 1 month) Elective arthroplasty Hip, pelvis, or leg fracture Acute spinal cord injury (< 1 month) <Iam Tenorio D - 03/11/18 13:55> Prophylaxis Regimen: Total Risk Factor Score Risk Level Prophylaxis Regimen 0-1 Low Early ambulation 2 Moderate Order ONE of the following: *Sequential Compression Device (SCD) *Heparin 5000 units SQ BID 3-4 Higher Order ONE of the following medications: *Heparin 5000 units SQ TID *Enoxaparin/Lovenox 40 mg SQ daily (WT < 150 kg, CrCl > 30 mL/min) *Enoxaparin/Lovenox 30 mg SQ daily (WT < 150 kg, CrCl > 10-29 mL/min) *Enoxaparin/Lovenox 30 mg SQ BID (WT < 150 kg, CrCl > 30 mL/min) AND/OR *Sequential Compression Device (SCD) 5 or more Highest Order ONE of the following medications: *Heparin 5000 units SQ TID (Preferred with Epidurals) *Enoxaparin/Lovenox 40 mg SQ daily (WT < 150 kg, CrCl > 30 mL/min) *Enoxaparin/Lovenox 30 mg SQ daily (WT < 150 kg, CrCl > 10-29 mL/min) *Enoxaparin/Lovenox 30 mg SQ BID (WT < 150 kg, CrCl > 30 mL/min) AND *Sequential Compression Device (SCD) <Artis Jung L - 03/12/18 22:45> Total Risk Factor Score Risk Level Prophylaxis Regimen 0-1 Low Early ambulation 2 Moderate Order ONE of the following: *Sequential Compression Device (SCD) *Heparin 5000 units SQ BID 3-4 Higher Order ONE of the following medications: *Heparin 5000 units SQ TID *Enoxaparin/Lovenox 40 mg SQ daily (WT < 150 kg, CrCl > 30 mL/min) *Enoxaparin/Lovenox 30 mg SQ daily (WT < 150 kg, CrCl > 10-29 mL/min) *Enoxaparin/Lovenox 30 mg SQ BID (WT < 150 kg, CrCl > 30 mL/min) AND/OR *Sequential Compression Device (SCD) 5 or more Highest Order ONE of the following medications: *Heparin 5000 units SQ TID (Preferred with Epidurals) *Enoxaparin/Lovenox 40 mg SQ daily (WT < 150 kg, CrCl > 30 mL/min) *Enoxaparin/Lovenox 30 mg SQ daily (WT < 150 kg, CrCl > 10-29 mL/min) *Enoxaparin/Lovenox 30 mg SQ BID (WT < 150 kg, CrCl > 30 mL/min) AND *Sequential Compression Device (SCD) <Iam Tenorio D - 03/11/18 13:55> Assessment and Plan - Assessment (1) Acute CVA (cerebrovascular accident) Code(s): I63.9 - Cerebral infarction, unspecified Status: Acute Plan: Patient is a 67-year-old male with past medical history of A. fib on Xarelto, prior VA and prior CVA and lower back pain presenting to the ED after suffering a fall and developing slurred speech and left-sided weakness. Head CT: Decreased attenuation involving the brainstem and hailey most consistent with subacute areas of cortical infarct, no acute intracranial hemorrhage. CTA neck: Bilateral calcified carotid plaques without any evidence of hemodynamic significant stenosis. CTA thoracic abdominal aorta: No acute aneurysm or dissection, focal moderate to severe stenosis of the left renal artery origin. Moderate L3 compression deformity of unknown chronicity, suspect chronic. MRI head with and without contrast: Old left temporal lobe infarct. No evidence of acute intracranial pathology or masses identified. Chest x-ray: No acute abnormalities EKG: Atrial fibrillation On admission patient with slight elevation in blood pressure otherwise afebrile , slightly tachycardia and normal respiratory rate and O2 saturation on room air. Complete left-sided weakness and sensory deficit on exam. Intact comprehension. Unremarkable findings on CBC and CMP Normal TSH, T4, blood glucose, troponins, INR (1.1). Neuro checks Head of bed flat for the next 12 hours Permissive hypertension Tylenol IV for pain control Statin therapy PT, OT and speech therapy Neurology consulted, appreciate recommendations Discuss patient case with Dr. Mckeon, MRI of the head is negative for acute stroke will repeat MRI tomorrow Follow-up results of EEG Continue with Xarelto and stroke protocol Follow-up Labs: A.m. labs, serology, and immunology EEG Echo Bedside swallow (2) Atrial fibrillation Code(s): I48.91 - Unspecified atrial fibrillation Status: Chronic Plan: Patient is currently rate control Continue with Cardizem home medication (3) Hypertension Code(s): I10 - Essential (primary) hypertension Status: Chronic Plan: Patient will be allowed to have permissive hypertension due to suspicion of acute stroke Continue to monitor vital signs Hold home medication for now (4) Urinary retention Code(s): R33.9 - Retention of urine, unspecified Status: Acute Plan: Patient with acute urinary retention We will follow-up bladder scan and order Bedoya catheter if needed Continue to monitor (5) Back pain Code(s): M54.9 - Dorsalgia, unspecified Status: Acute Plan: Patient with chronic history of back pain however now complaining of neck, worsening back pain, hip pain and shoulder pain in the setting of acute urinary retention. Home gabapentin on hold -will obtain spinal imaging Follow-up MR of spine Tylenol IV for pain control Morphine for breakthrough pain (6) Nutrition, metabolism, and development symptoms Code(s): R63.8 - Other symptoms and signs concerning food and fluid intake Status: Acute Plan: Fluids: 80 ml per hour Electrolyte: replete as needed Diet: n.p.o. pending swallow evaluation results DVT prophylaxis: SCDs and c/w home Xarelto daily <Iam Tenorio D - 03/11/18 18:54> (1) Left-sided weakness Code(s): R53.1 - Weakness Status: Acute (2) Compression fracture Status: Chronic (3) Urinary retention Code(s): R33.9 - Retention of urine, unspecified Status: Acute (4) Atrial fibrillation Code(s): I48.91 - Unspecified atrial fibrillation Status: Chronic (5) Hypertension Code(s): I10 - Essential (primary) hypertension Status: Chronic (6) Nutrition, metabolism, and development symptoms Code(s): R63.8 - Other symptoms and signs concerning food and fluid intake Status: Acute <Artis Jung - 03/12/18 22:45> - Attending Attestation The exam, history, and the medical decision-making described in the above note were completed with the assistance of the resident physician. I reviewed and agree with the findings presented. I attest that I had a [id number] encounter with the patient on the following day, and personally performed and documented my assessment and findings in the medical record. Please see my note on 03/12/18. <Artis Jung - 03/12/18 22:45> <Artis Jung - Last Filed: 03/12/18 22:45> (4) Atrial fibrillation Qualifiers: Atrial fibrillation type: chronic Qualified Code(s): I48.2 - Chronic atrial fibrillation <Artis Jung - Last Filed: 03/12/18 22:45> (4) Atrial fibrillation Qualifiers: Atrial fibrillation type: chronic Qualified Code(s): I48.2 - Chronic atrial fibrillation
[2018-03-11] MEDS ORDERED: Naloxone Inj 0.4 MG/ML Vial IV.PUSH PRN (14:02)
--- NOTE | 2018-03-11 14:15 | MG ---
cc: Kayode Encarnacion MD, PhD TEST NUMBER: [id number]. TECHNIQUE: 17-channel EEG. DESCRIPTION: Background rhythm reveals symmetrical alpha frequency of 8-9 Hz, amplitude 20-30 microvolts. There is drowsiness and further slowing in the theta range. The patient does fall asleep. Sleep spindles are seen and some slowing in delta activity. I do not see any epileptiform features. No lateralizing features identified. Hyperventilation was not done. Occasional vertex sharp waves are seen, which is normal for sleep. No epileptiform discharges. Photic is normal. INTERPRETATION: Normal electroencephalogram. Kayode Encarnacion MD, PhD MICHEAL/joseph , 01:59 PM , 02:07 PM
--- NOTE | 2018-03-11 14:42 | MR ---
EXAM DATE: 03/11/2018 1:33 PM EST AGE/SEX: 67 years / Male INDICATIONS: Altered mental status. CLINICAL DATA: This is the patient's subsequent encounter. Patient reports that signs and symptoms h ave been present for 2 days and indicates a pain score of 0/10. MEDICAL/SURGICAL HISTORY: Hypertension. Hypercholesterolemia. a fib . shoulder surgery. COMPARISON: No prior exams available for comparison. TECHNIQUE: Multiplanar, multisequence examination of the brain was performed without and with 8 ml Ga davist (gadobutrol) contrast as a single exam dose. FINDINGS: MRI of the brain is performed in sagittal, axial and coronal planes. The craniocervical junction and midline structures are unremarkable. Diffusion weighted images demonstrate no abnormality. No acute c ortical infarction, acute hemorrhage, mass effect or midline shift is seen.Following the administrati on of contrast no abnormal enhancement is identified. There is old lacunar infarct in the left basal ganglia. There is cystic encephalomalacia involving the anterior left temporal lobe. Posterior fossa structures are unremarkable. CONCLUSION: Old left temporal lobe infarct. No evidence of acute intracranial pathology. No masses are identified. Electronically signed by: Donald Paris MD 03/11/2018 2:41 PM EST
[2018-03-11 15:08] LABS: Bacteria,Urine Rare /hpf; Bilirubin,Urine Negative (Negative); Clarity,Urine Clear (Clear); Color,Urine Yellow (Yellw/Straw); Glucose,Urine (UA) Negative (Negative); Leukocyte Esterase,Urine Negative (Negative); Mucus,Urine Few /lpf (Occasional); Nitrite,Urine Negative (Negative)
[2018-03-11] MEDS: Sod Chloride 0.9% Inj 1,000 ML IV.CONT SCH (15:12)
[2018-03-11] MEDS: Rivaroxaban 20 MG Tablet PO SCH ×2 (15:12→15:23)
--- NOTE | 2018-03-11 15:31 | CT ---
EXAM DATE: 03/11/2018 3:22 PM EST AGE/SEX: 67 years / Male INDICATIONS: Severe back pain. CLINICAL DATA: This is the patient's initial encounter. Patient reports that signs and symptoms have been present for 1 day and indicates a pain score of 10/10. MEDICAL/SURGICAL HISTORY: Cardiovascular disease. Hypertension. None. RADIATION DOSE: 8.86 CTDI (mGy) COMPARISON: No prior exams available for comparison. TECHNIQUE: Volumetric scanning was performed using a multi-row detector CT scanner during bolus infu jose of 75 ml Visipaque 320 (iodixanol) nonionic water-soluble contrast as a single exam dose. The data was post processed with a variety of visualization algorithms including full volume maximum inte nsity projection, multi-planar sliding thin slab reformation, curved planar reformation, and surface rendering techniques. Using automated exposure control and adjustment of the mA and/or kV according to patient size, radiation dose was kept as low as reasonably achievable to obtain optimal diagnostic quality images. DICOM format image data is available electronically for review and comparison. FINDINGS: Angiographic Findings: Ascending: Normal in Caliber without evidence for dissection. Arch: Normal 3 vessel arch anatomy. Proximal arch vessels are patent. Arch is normal in caliber witho ut dissection. Descending: Normal in Caliber without evidence for dissection. Abdominal Aorta: Mild mixed plaque in the distal infrarenal aorta without significant flow-limiting stenosis or aneurysm. Dissection. Iliacs: The iliac arteries are patent and non-aneurysmal Renal Arteries: Single bilateral renal arteries. Focal moderate-severe stenosis of the left renal art andrews origin. Mesenteric Arteries: Celiac, SMA, and SWETHA are patent.: General Findings: LUNGS: Mild groundglass opacities bilaterally and linear scarring in the left lung base. PLEURA: No effusion, significant pleural thickening or pneumothorax. MEDIASTINUM: Heart is unremarkable without pericardial effusion.No evidence of mediastinal or hilar adenopathy. LIVER: Mild diffusely decreased hepatic attenuation without intrahepatic ductal dilatation. Gallblad jaime is distended but otherwise unremarkable by CT. SPLEEN: Homogeneous density without enlargement. PANCREAS: Mild fatty replacement of the pancreas. KIDNEYS: Kidneys demonstrate symmetrical size without evidence for hydronephrosis. There is some mil d scarring in the inferior pole the left kidney. ADRENAL GLANDS: Unremarkable. BOWEL/MESENTERY: The bowel loops are grossly unremarkable. The cecum and sigmoid colon have a richard l configuration. Normal appendix. No free fluid or drainable fluid collections. No free air. ABDOMINAL WALL: Intact. RETROPERITONEUM: No evidence of adenopathy in the retrocrural, para-aortic, or deep pelvic regions. BLADDER: Decompressed secondary to Bedoya catheter. Small amount of air in the bladder likely introdu randall via Bedoya. REPRODUCTIVE: No abnormal masses or calcifications seen. BONY STRUCTURES: There is S-shaped thoracolumbar scoliosis. Moderate compression deformity of the L3 vertebral body. No significant prevertebral soft tissue changes. CONCLUSION: 1. No aortic aneurysm or dissection. 2. Focal moderate to severe stenosis of the left renal artery origin. 3. Moderate L3 compression deformity of unknown chronicity given lack of prior exams. However, suspe ct or chronic etiology given lack of prevertebral changes. Clinical correlation with spinous process tenderness is recommended. 4. Ancillary findings, as above. Electronically signed by: Reese Puga MD 03/11/2018 3:30 PM EST
[2018-03-11] MEDS: Morphine Inj 4 MG/ML Vial IV.PUSH PRN ×3 (15:43→23:39)
--- NOTE | 2018-03-11 17:05 | ECHRPT ---
Indication: CVA/TIA CONCLUSIONS Normal left ventricular size. Wall thickness is measured at the upper limits of normal. The left ventricular systolic function is low normal with an estimated ejection fraction of 50%. The left atrial size is zpvqoyzp-ax-qyixlvsf dilated. The right atrial size is wiwojjbg-un-jlnrklpa dilated. Mild mitral valve regurgitation. There is trace tricuspid valve regurgitation. The estimated pulmonary arterial pressure is 52 mmHg. BP: / HR: Rhythm: MEASUREMENTS (Male / Female) Normal Values Technical Quality:Fair 2D ECHO LV Diastolic Diameter PLAX 4.5 cm 4.2 - 5.9 / 3.9 - 5.3 cm LV Systolic Diameter PLAX 3.1 cm IVS Diastolic Thickness 1.1 cm 0.6 - 1.0 / 0.6 - 0.9 cm LVPW Diastolic Thickness 1.0 cm 0.6 - 1.0 / 0.6 - 0.9 cm LV Relative Wall Thickness 0.5 RV Internal Dim ED PLAX 2.0 cm LVOT Diameter 2.4 cm Aortic Root Diameter 2.5 cm LA Systolic Diameter LX 5.2 cm 3.0 - 4.0 / 2.7 - 3.8 cm LV Ejection Fraction MOD 4C 41.6 % LV Ejection Fraction 4C AL 46.3 % M-MODE Aortic Root Diameter MM 3.3 cm LA Systolic Diameter MM 5.2 cm LA Ao Ratio MM 1.6 DOPPLER AV Peak Velocity 126.0 cm/s AV Peak Gradient 6.4 mmHg LVOT Peak Velocity 53.3 cm/s LVOT Peak Gradient 1.1 mmHg AV Area Cont Eq pk 1.9 cm Mitral E Point Velocity 71.3 cm/s Mitral A Point Velocity 27.6 cm/s Mitral E to A Ratio 2.6 TR Peak Velocity 322.0 cm/s TR Peak Gradient 41.0 mmHg Right Atrial Pressure 10.0 mmHg Pulmonary Artery Systolic Pressu 51.5 mmHg Right Ventricular Systolic Press 51.5 mmHg PV Peak Velocity 108.0 cm/s PV Peak Gradient 4.7 mmHg FINDINGS LEFT VENTRICLE Normal left ventricular size. Wall thickness is measured at the upper limits of normal. The left ventricular systolic function is low normal with an estimated ejection fraction of 50%. RIGHT VENTRICLE Normal right ventricular size and systolic function. LEFT ATRIUM The left atrial size is vwjndxpr-uf-vobwkhrn dilated. RIGHT ATRIUM The right atrial size is cismkhod-su-vopxycji dilated. ATRIAL SEPTUM Normal atrial septal thickness without atrial level shunting by limited color doppler interrogation. AORTA The aortic root and proximal ascending aorta are normal in size on limited imaging. MITRAL VALVE Mild mitral valve regurgitation. AORTIC VALVE Trileaflet aortic valve. No aortic valve stenosis or regurgitation. TRICUSPID VALVE There is trace tricuspid valve regurgitation. The estimated pulmonary arterial pressure is 52 mmHg. PULMONARY VALVE No pulmonary valve regurgitation or stenosis. VESSELS The inferior vena cava is normal in size. PERICARDIUM No pericardial effusion. Femi Sharma MD, FACC (Electronically Signed) Final Date:11 March 2018 17:04
--- NOTE | 2018-03-11 18:23 | ECG ---
Date Performed: 03/11/2018 Time Performed: 09:24:21 PTAGE: 67 years EKG: ATRIAL FIBRILLATION WITH RAPID VENTRICULAR RESPONSE POSSIBLE RIGHT VENTRICULAR CONDUCTION D ELAY POSSIBLE SEPTAL MYOCARDIAL INFARCTION ABNORMAL ECG INTERPRETATION BASED ON A DEFAULT AGE OF 38 Y EARS NO PREVIOUS TRACING DOCTOR: Mathew Porter Interpretating Date/Time 03/11/2018 18:21:50
--- NOTE | 2018-03-11 19:12 | MR ---
EXAM DATE: 03/11/2018 6:57 PM EST AGE/SEX: 67 years / Male INDICATIONS: Pain. Fall. CLINICAL DATA: This is the patient's subsequent encounter. Patient reports that signs and symptoms h ave been present for 1 day and indicates a pain score of 3/10. MEDICAL/SURGICAL HISTORY: Hypertension. Hypercholesterolemia. Afib. . Right shoulder. COMPARISON: [facility], CTA THOR ABD AORTA W CONTRAST W 3D, 03/11/2018. . TECHNIQUE: Multiplanar, multisequence MRI of the thoracic spine was performed. FINDINGS: There is a mild S shaped thoracolumbar curvature. The thoracic portion of the curvature is dextroconv ex. There are no subluxations. Thoracic vertebral bodies have normal height. A focal Schmorl's node s een at the inferior endplate of T8, potentially acute or subacute in age. Otherwise, intervertebral d iscs are normal. No foraminal or spinal stenosis of the thoracic spine. The CONCLUSION: 1. T8/T9 intervertebral disc has a small herniation into the adjacent inferior endplate of T8 which could be acute or subacute in age. 2. Mild scoliosis. 3. Otherwise negative MRI of the thoracic spine. Electronically signed by: Dipak Cohen MD 03/11/2018 7:10 PM EST
--- NOTE | 2018-03-11 19:19 | MR ---
EXAM DATE: 03/11/2018 7:03 PM EST AGE/SEX: 67 years / Male INDICATIONS: Pain. Fall. Urinary retention. CLINICAL DATA: This is the patient's subsequent encounter. Patient reports that signs and symptoms h ave been present for 1 day and indicates a pain score of 5/10. MEDICAL/SURGICAL HISTORY: Hypertension. Hypercholesterolemia. Afib. . Right shoulder. COMPARISON: [facility], CTA THOR ABD AORTA W CONTRAST W 3D, 03/11/2018. . TECHNIQUE: Multiplanar, multisequence MRI of the lumbar spine was performed without contrast. Patie nt was scanned in a sitting position; neutral, flexion, and extension scans were performed in the sa gittal plane. FINDINGS: There is S-shaped thoracolumbar curvature. The lumbar portion of the curvature is levoconvex. There a re no subluxations. Moderate to severe chronic compression deformity seen of the L3 vertebral body. No fracture-associate d foraminal or spinal stenosis. L4/L5 intervertebral disc is severely edematous and has severe loss of height. There is a suggestion of vacuum phenomenon but this is not substantiated on the comparison CT. There is marrow edema of the adjacent intervertebral disc spaces. There is a small to moderate, diffuse disc osteophyte complex a nd severe bilateral facet osteoarthritis with thickening of the ligamentum flavum. There is associate d mild to moderate spinal stenosis and umlm-kv-oxmdwuiy right, moderate left foraminal stenosis. More typical-appearing degenerative disc disease with small, broad posterior disc osteophyte complexe s and moderate bilateral facet osteoarthritis seen at L2/L3 and L3/L4. There is mild bilateral forami nal stenosis at both levels. CONCLUSION: 1. No acute fracture or subluxation of the lumbar spine. 2. Chronic moderate to severe L3 compression deformity without associated foraminal or spinal stenos is. 3. Severe edema and loss of height of the L4/L5 intervertebral disc. There is irregularity and marro w edema of the adjacent vertebral body endplates. Discitis/osteomyelitis possible in the proper clini todd setting. There is mild to moderate spinal stenosis and kxaz-us-yrdwrkrt right, moderate left fora lilibeth stenosis at this level. 4. Typical-appearing degenerative changes elsewhere. Mild bilateral foraminal stenosis at L2/L3 and L3/L4. 5. Scoliosis. Electronically signed by: Dipak Cohen MD 03/11/2018 7:18 PM EST
--- NOTE | 2018-03-11 19:34 | MR ---
EXAM DATE: 03/11/2018 7:13 PM EST AGE/SEX: 67 years / Male INDICATIONS: Pain. Fall. CLINICAL DATA: This is the patient's subsequent encounter. Patient reports that signs and symptoms h ave been present for 1 day and indicates a pain score of 4/10. MEDICAL/SURGICAL HISTORY: Hypertension. Hypercholesterolemia. Afib. . Right shoulder. COMPARISON: [facility], CTA NECK W CONTRAST W 3D, 03/11/2018. . TECHNIQUE: Multiplanar, multisequence MRI examination of the cervical spine was performed without co ntrast. FINDINGS: No discrete fracture line is seen of the cervical spine. No subluxation.. Vertebral bodies have richard l height. Mild to moderate osteoarthritis seen anteriorly and laterally at C1/C2 without stenosis. C2-C3: The disc is desiccated but otherwise within normal limits. No foraminal or spinal stenosis. C3-C4: The disc is desiccated and has mild loss of height. There is a small, broad posterior disc os teophyte complex and mild to moderate right, moderate to severe left uncovertebral and facet osteoart hritis. No significant spinal stenosis. There is mild right and moderate to severe left foraminal ritu nosis. C4-C5: The disc is desiccated and has moderate to severe loss of height. Mild, reactive appearing en dplate marrow edema. Small to moderate, broad but mostly central to right paracentral disc osteophyte complex. There is moderate bilateral uncovertebral and facet osteoarthritis. There is mild spinal st enosis without cord compression or cord signal abnormality. There is moderate right and mild left for aminal stenosis. C5-C6: The disc is desiccated and has moderate loss of height. Small, circumferential disc osteophyt e complex is present. There is prominent endplate marrow edema, especially towards the right, that I believe is reactive. There is mild to moderate bilateral uncovertebral and facet osteoarthritis. Ther e is mild spinal stenosis without cord compression or cord signal abnormality. There is mild to moder ate bilateral foraminal stenosis. C6-C7: The disc is desiccated and has severe loss of height. A small, broad posterior disc osteophyt e complex is present and there is mild to moderate bilateral uncovertebral and facet osteoarthritis. No significant spinal stenosis. There is very mild bilateral foraminal stenosis. C7-T1: The disc is slightly desiccated but otherwise normal. There is mild to moderate bilateral fac et osteoarthritis. No foraminal or spinal stenosis. CONCLUSION: 1. No subluxation or definite acute fracture of the cervical spine. There is prominent endplate tasha ow edema towards the right at C5/C6 but I believe this is reactive. No discrete fracture line is demo nstrated and perivertebral soft tissues are within normal limits.. 2. Multilevel cervical spine degenerative changes as detailed above. Electronically signed by: Dipak Cohen MD 03/11/2018 7:32 PM EST
[2018-03-11] MEDS ORDERED: dilTIAZem CD 240 MG Capsule PO SCH (20:00)
[2018-03-11 22:04] LABS: Amphetamine Screen,Urine Neg (Neg); Barbiturate Screen,Urine Neg (Neg); Cannabinoid Screen,Urine Neg (Neg); Cocaine Screen,Urine Neg (Neg)
[2018-03-11 22:07] LABS: Opiate Screen,Urine Pos (Neg)
[2018-03-11] MEDS: Senna/Docusate Sodium 8.6/50 MG Tablet PO SCH (22:43)
[2018-03-12] MEDS ORDERED: Metoprolol Inj 5 MG/5 ML Vial IV.PUSH PRN (00:49)
[2018-03-12] MEDS ORDERED: Enoxaparin Inj 40 MG/0.4 ML Syringe SQ SCH (01:00)
[2018-03-12] MEDS: Sod Chloride 0.9% Inj 1,000 ML IV.CONT SCH ×2 (05:45→16:15)
[2018-03-12] MEDS: Morphine Inj 4 MG/ML Vial IV.PUSH PRN ×6 (06:05→22:17)
[2018-03-12 06:52] LABS: Baso % (Auto) 0.7 % (0.0-2.0); Eos # (Auto) 0.1 th/mm3 (0.0-0.4); Eos % (Auto) 2.5 % (0.0-4.0); Hematocrit 42.3 % (39.0-51.0); Hemoglobin 14.4 gm/dL (13.0-17.0); Lymph # (Auto) 1.1 th/mm3 (1.0-4.8); Lymph % (Auto) 19.4 % (9.0-44.0); Mean Corpuscular Hemoglobin 31.3 pg (27.0-34.0); Mean Corpuscular Volume 92.1 fL (80.0-100.0); Mean Platelet Volume 8.3 fL (7.0-11.0); Mono # (Auto) 0.7 th/mm3 (0.0-0.9); Mono % (Auto) 12.9 % (0.0-8.0); Neut # (Auto) 3.6 th/mm3 (1.8-7.7); Neut % (Auto) 64.5 % (16.0-70.0); Platelet Count 145 th/mm3 (150-450); Red Blood Count 4.59 mil/mm3 (4.50-5.90); Red Cell Distribution Width 14.6 % (11.6-17.2); White Blood Count 5.5 th/mm3 (4.0-11.0)
[2018-03-12 07:12] LABS: Albumin 3.4 g/dL (3.4-5.0); Anion Gap 11 meq/L (5-15); Aspartate Aminotransferase 23 U/L (15-37); Blood Urea Nitrogen 17 mg/dL (7-18); Calcium 8.4 mg/dL (8.5-10.1); Carbon Dioxide 24.5 meq/L (21.0-32.0); Chloride 107 meq/L (98-107); Glomerular Filtration Rate Greater Than 89 mL/min (>89); Glucose,Random 59 mg/dL (74-106); Potassium 3.9 meq/L (3.5-5.1); Sodium 142 meq/L (136-145)
[2018-03-12 07:13] LABS: Alanine Aminotransferase 18 U/L (12-78); Cholesterol 123 mg/dL (120-200); Triglycerides 55 mg/dL (42-150)
[2018-03-12 07:16] LABS: Alkaline Phosphatase 111 U/L (45-117); Creatine Kinase 249 U/L (39-308); HDL Cholesterol 43.8 mg/dL (40.0-60.0); LDL Cholesterol,Calculated 68 mg/dL (0-99); Total Protein 6.6 g/dL (6.4-8.2)
--- NOTE | 2018-03-12 07:44 | P.PNNEU ---
Subjective Active Medications: Active Medications Al Hydroxide/Mg Hydroxide (Milk Of Magnesia Liq) 30 ml PO Q12H PRN PRN Reason: Mild Constipation Atorvastatin Calcium (Lipitor) 40 mg PO DAILY [facility] Last Admin: 03/11/18 15:23 Dose: Not Given Bisacodyl (Dulcolax Supp) 10 mg RECTAL DAILY PRN PRN Reason: SEVERE CONSITIPATION Diltiazem HCl (Cardizem Cd 24hr) 240 mg PO DAILY [facility] Last Admin: 03/11/18 20:44 Dose: Not Given Enoxaparin Sodium (Lovenox Inj) 40 mg SQ HS [facility] Last Admin: 03/12/18 03:19 Dose: 40 mg Sodium Chloride (Ns Inj) 1,000 mls @ 80 mls/hr IV.CONT .[id number] [facility] Last Admin: 03/12/18 05:45 Dose: 80 mls/hr Acetaminophen (Ofirmev Inj) 1,000 mg in 100 mls @ 400 mls/hr IV.SIG Q6H [facility] Stop: 03/12/18 09:14 Last Infusion: 03/12/18 03:34 Dose: Infused Lactulose (Lactulose Liq) 30 ml PO DAILY PRN PRN Reason: SEVERE CONSITIPATION Metoprolol Tartrate (Lopressor Inj) 5 mg IV.PUSH Q5M PRN PRN Reason: for HR>120 Morphine Sulfate (Morphine Inj) 4 mg IV.PUSH Q3H PRN PRN Reason: BREAKTHROUGH PAIN Last Admin: 03/12/18 06:05 Dose: 4 mg Naloxone HCl (Narcan Inj) 0.4 mg IV.PUSH UNSCH PRN PRN Reason: SEE LABEL COMMENTS Ondansetron HCl (Zofran Inj) 4 mg IV.PUSH Q6H PRN PRN Reason: NAUSEA OR VOMITING Rivaroxaban (Xarelto) 20 mg PO DAILY [facility] Last Admin: 03/11/18 15:23 Dose: Not Given Senna/Docusate Sodium (Gabby-Colace) 1 tab PO BID [facility] Last Admin: 03/11/18 22:43 Dose: Not Given Sennosides (Senokot) 17.2 mg PO Q12H PRN PRN Reason: Moderate Constipation Sodium Chloride (Ns Flush) 2 ml IV.FLUSH PRN PRN PRN Reason: FLUSH AFTER USING IV ACCESS Last Admin: 03/11/18 10:16 Dose: 2 ml Allergies/Adverse Reactions: Allergies Allergy/AdvReac Type Severity Reaction Status Date / Time No Known Allergies Allergy Verified 03/11/18 09:31 Physical Exam Vital signs: Vital Signs 03/11/18 09:18 03/11/18 09:38 03/11/18 10:12 Temperature 97.8 F 97.9 F 97.8 F Pulse Rate 138 H 118 H 116 H Respiratory Rate 18 18 17 Blood Pressure 140/89 156/88 H 166/85 H Pulse Oximetry 98 98 98 03/11/18 10:30 03/11/18 11:00 03/11/18 11:30 Temperature 97.7 F 97.8 F 97.5 F L Pulse Rate 104 H 96 H 98 H Respiratory Rate 20 17 17 Blood Pressure 158/90 H 156/93 H 156/88 H Pulse Oximetry 98 98 98 03/11/18 12:47 03/11/18 13:10 03/11/18 13:51 Temperature 97.7 F 97.8 F Pulse Rate 103 H 101 H Respiratory Rate 16 16 18 Blood Pressure 157/86 H 169/88 H Pulse Oximetry 98 99 03/11/18 14:07 03/11/18 15:00 03/11/18 15:32 Temperature 98 F Pulse Rate 98 H Respiratory Rate 18 17 Blood Pressure 158/91 H Pulse Oximetry 98 96 03/11/18 15:45 03/11/18 15:46 03/11/18 19:22 Temperature 97.7 F Pulse Rate 100 H 104 H Respiratory Rate 18 16 18 Blood Pressure 158/88 H 164/99 H Pulse Oximetry 97 98 03/11/18 21:26 03/11/18 21:50 03/11/18 22:00 Temperature 97.8 F Pulse Rate 87 88 Respiratory Rate 17 15 Blood Pressure 172/90 H 163/102 H Pulse Oximetry 98 94 L 96 03/11/18 22:10 03/11/18 23:00 03/11/18 23:34 Temperature Pulse Rate 85 96 H 110 H Respiratory Rate 19 18 29 H Blood Pressure 175/100 H 181/99 H 191/109 H Pulse Oximetry 97 97 100 03/11/18 23:41 03/11/18 23:43 03/11/18 23:58 Temperature Pulse Rate 97 H 99 H Respiratory Rate 14 27 H 30 H Blood Pressure 213/107 H 164/94 H Pulse Oximetry 100 98 03/12/18 00:00 03/12/18 01:00 03/12/18 02:00 Temperature 97.9 F Pulse Rate 95 H 88 84 Respiratory Rate 24 21 15 Blood Pressure 172/91 H 178/93 H 181/90 H Pulse Oximetry 99 97 98 03/12/18 02:18 03/12/18 06:07 Temperature Pulse Rate 88 Respiratory Rate 13 18 Blood Pressure 152/94 H Pulse Oximetry 97 Intake & Output 03/11/18 03/12/18 03/12/18 18:59 06:59 18:59 Intake Total 1100 / 1100 1200 / 1200 Output Total 600 / 600 1050 / 1050 Balance 500 / 500 150 / 150 Weight 87.1 kg 80.7 kg Intake: IV 1100 / 1100 1200 / 1200 NS Inj 1,000 ML @ 80 mls/hr IV. 1000 / 1000 CONT .[id number] ANIKET Rx#:[id number] Ofirmev Inj 1,000 mg In 100 ml 100 / 100 200 / 200 @ 400 mls/hr IV.SIG Q6H ANIKET Rx# :[id number] NS Inj 1,000 ML @ 1000 mls/hr 1000 / 1000 IV.SIG BOLUS ANIKET Rx#:[id number] Oral 0 / 0 Output: Urine Amount (Catheter) 600 / 600 1050 / 1050 Indwelling Urethral Catheter 600 / 600 1050 / 1050 Other: Date of Last Bowel Movement 03/10/18 Weight On Admission 80.7 kg Narrative: no parul lhp although did not let his hand hit his face on exam vision poor to left speech better still tremor tongue - Urinary Catheter Management Indwelling Urethral Catheter Cath placed during this visit: yes Reason for continuing: Not indwelling catheter Insertion date: 03/11/18 Insertion time: 14:50 Objective Laboratory Results - last 24 hr 03/11/18 03/11/18 03/11/18 09:20 09:20 09:20 WBC RBC Hgb POC Hgb (Calc) 13.9 Hct POC Hct 41.0 MCV MCH MCHC RDW Plt Count MPV Neut % (Auto) Lymph % (Auto) [place] % (Auto) Eos % (Auto) Baso % (Auto) Neut # (Auto) Lymph # (Auto) [place] # (Auto) Eos # (Auto) Baso # (Auto) WBC Differential Differential Comment ESR PT INR APTT Fibrinogen POC Sodium 140 Sodium 140 POC Potassium 3.7 Potassium 3.7 POC Chloride 107 Chloride 106 Carbon Dioxide 20.0 L Anion Gap 14 POC BUN 22 H BUN 27 H Creatinine 1.22 POC Creatinine 1.2 Estimated GFR 59 L POC Glucose 114 H Random Glucose 115 H Calcium 8.8 Total Bilirubin Direct Bilirubin Indirect Bilirubin AST ALT Alkaline Phosphatase Total Creatine Kinase 200 CK-MB (CK-2) 2.0 Troponin I Less than 0.02 L Total Protein Albumin Triglycerides Cholesterol LDL Cholesterol, Calc HDL Cholesterol Cholesterol/HDL Ratio Vitamin B12 359 TSH 0.614 Free T4 1.16 Urine Color Urine Clarity Urine pH Ur Specific [place] Urine Protein Urine Glucose (UA) Urine Ketones Urine Occult Blood Urine Nitrate Urine Bilirubin Urine Urobilinogen Ur Leukocyte Esterase Urine RBC Urine WBC Urine Bacteria Urine Mucus Micro UA Comment Ur Microscopic Review Urine Culture Comments Urine Opiates Screen Ur Barbiturates Screen Ur Amphetamines Screen U Benzodiazepines Scrn Urine Cocaine Screen U Cannabinoids Screen 03/11/18 03/11/18 03/11/18 09:30 09:30 09:30 WBC 5.8 RBC 4.48 L Hgb 13.8 POC Hgb (Calc) Hct 41.5 POC Hct MCV 92.7 MCH 30.7 MCHC 33.2 RDW 14.7 Plt Count 168 MPV 8.4 Neut % (Auto) 76.0 H Lymph % (Auto) 12.7 [place] % (Auto) 10.5 H Eos % (Auto) 0.2 Baso % (Auto) 0.6 Neut # (Auto) 4.4 Lymph # (Auto) 0.7 L [place] # (Auto) 0.6 Eos # (Auto) 0.0 Baso # (Auto) 0.0 WBC Differential . Differential Comment Auto diff final ESR 8 PT 11.3 INR 1.1 APTT 30.0 Fibrinogen POC Sodium Sodium POC Potassium Potassium POC Chloride Chloride Carbon Dioxide Anion Gap POC BUN BUN Creatinine POC Creatinine Estimated GFR POC Glucose Random Glucose Calcium Total Bilirubin Direct Bilirubin Indirect Bilirubin AST ALT Alkaline Phosphatase Total Creatine Kinase CK-MB (CK-2) Troponin I Total Protein Albumin Triglycerides Cholesterol LDL Cholesterol, Calc HDL Cholesterol Cholesterol/HDL Ratio Vitamin B12 TSH Free T4 Urine Color Urine Clarity Urine pH Ur Specific [place] Urine Protein Urine Glucose (UA) Urine Ketones Urine Occult Blood Urine Nitrate Urine Bilirubin Urine Urobilinogen Ur Leukocyte Esterase Urine RBC Urine WBC Urine Bacteria Urine Mucus Micro UA Comment Ur Microscopic Review Urine Culture Comments Urine Opiates Screen Ur Barbiturates Screen Ur Amphetamines Screen U Benzodiazepines Scrn Urine Cocaine Screen U Cannabinoids Screen 03/11/18 03/11/18 03/11/18 14:00 14:40 23:56 WBC RBC Hgb POC Hgb (Calc) Hct POC Hct MCV MCH MCHC RDW Plt Count MPV Neut % (Auto) Lymph % (Auto) [place] % (Auto) Eos % (Auto) Baso % (Auto) Neut # (Auto) Lymph # (Auto) [place] # (Auto) Eos # (Auto) Baso # (Auto) WBC Differential Differential Comment ESR PT INR APTT Fibrinogen 303 POC Sodium Sodium POC Potassium Potassium POC Chloride Chloride Carbon Dioxide Anion Gap POC BUN BUN Creatinine POC Creatinine Estimated GFR POC Glucose Random Glucose Calcium Total Bilirubin Direct Bilirubin Indirect Bilirubin AST ALT Alkaline Phosphatase Total Creatine Kinase CK-MB (CK-2) Troponin I Total Protein Albumin Triglycerides Cholesterol LDL Cholesterol, Calc HDL Cholesterol Cholesterol/HDL Ratio Vitamin B12 TSH Free T4 Urine Color Yellow Urine Clarity Clear Urine pH 5.0 Ur Specific [place] 1.040 H Urine Protein Negative Urine Glucose (UA) Negative Urine Ketones 20 Urine Occult Blood Small H Urine Nitrate Negative Urine Bilirubin Negative Urine Urobilinogen Less than 2 Ur Leukocyte Esterase Negative Urine RBC 8 H Urine WBC 2 Urine Bacteria Rare H Urine Mucus Few H Micro UA Comment Culture not ind Ur Microscopic Review Not Reportable Urine Culture Comments Culture not ind Urine Opiates Screen Pos H Ur Barbiturates Screen Neg Ur Amphetamines Screen Neg U Benzodiazepines Scrn Neg Urine Cocaine Screen Neg U Cannabinoids Screen Neg 03/12/18 03/12/18 05:43 05:43 WBC 5.5 RBC 4.59 Hgb 14.4 POC Hgb (Calc) Hct 42.3 POC Hct MCV 92.1 MCH 31.3 MCHC 34.0 RDW 14.6 Plt Count 145 L MPV 8.3 Neut % (Auto) 64.5 Lymph % (Auto) 19.4 [place] % (Auto) 12.9 H Eos % (Auto) 2.5 Baso % (Auto) 0.7 Neut # (Auto) 3.6 Lymph # (Auto) 1.1 [place] # (Auto) 0.7 Eos # (Auto) 0.1 Baso # (Auto) 0.0 WBC Differential . Differential Comment Auto diff final ESR PT INR APTT Fibrinogen POC Sodium Sodium 142 POC Potassium Potassium 3.9 POC Chloride Chloride 107 Carbon Dioxide 24.5 Anion Gap 11 POC BUN BUN 17 Creatinine 0.79 POC Creatinine Estimated GFR Greater than 89 POC Glucose Random Glucose 59 L Calcium 8.4 L Total Bilirubin 1.1 H Direct Bilirubin 0.3 H Indirect Bilirubin 0.8 AST 23 ALT 18 Alkaline Phosphatase 111 Total Creatine Kinase 249 CK-MB (CK-2) Troponin I Total Protein 6.6 Albumin 3.4 Triglycerides 55 Cholesterol 123 LDL Cholesterol, Calc 68 HDL Cholesterol 43.8 Cholesterol/HDL Ratio 2.80 Vitamin B12 TSH Free T4 Urine Color Urine Clarity Urine pH Ur Specific [place] Urine Protein Urine Glucose (UA) Urine Ketones Urine Occult Blood Urine Nitrate Urine Bilirubin Urine Urobilinogen Ur Leukocyte Esterase Urine RBC Urine WBC Urine Bacteria Urine Mucus Micro UA Comment Ur Microscopic Review Urine Culture Comments Urine Opiates Screen Ur Barbiturates Screen Ur Amphetamines Screen U Benzodiazepines Scrn Urine Cocaine Screen U Cannabinoids Screen Review/Management - Review/Management Plan: imp ctax2 nl mri no new ldl nl plan recheck mri if neg again possible malingering continue xarelto and if mri neg on repeat bring bp down to 140-160/ today
[2018-03-12] MEDS ORDERED: Dextrose 5%/NaCl 0.9% Inj 1,000 ML IV.CONT SCH (08:00)
[2018-03-12] MEDS: Senna/Docusate Sodium 8.6/50 MG Tablet PO SCH ×2 (08:22→22:18)
--- NOTE | 2018-03-12 09:18 | P.CONNS ---
History of Present Illness Service: Neurosurgery Consult date: 03/12/18 Requesting Physician: Donald Mckeon Reason for Consult: Lumbar fracture Primary Care Provider: UNKNOWN Chief Complaint: evaluation for stroke History of Present Illness: this is a 67-year-old male with history of A. fib on Xarelto, prior [place] and prior CVA and lower back pain presenting to the ED after suffering a fall and developing slurred speech and left-sided weakness. History limited to patient' s ability to answer question due to slurred speech. Patient reports that he was walking and noticed pain on his head and then fell injuring his neck and back. After the fall patient noted to have slurred speech and left-sided weakness. Patient was found on the sidewalk. He is able to answer yes/no questions. He is alert and oriented x3. Endorses pain of left side of abdomen, neck, back, hips and shoulders. Denies any chest pain, fever, chills, dizziness, or seizures. Patient is very tearful and upset with current status. He reports he is not able to urinate and this is a new issue for him. Endorses blurry vision worse on left side. He reports he is not having any difficulties breathing and is able to tolerate secretions. Once patient arrived to the ED stroke alert was called. CT head was negative for bleeding. Of note patient is not a TPA candidate due to being on Xarelto. his family history is noncontributory Review of Systems All other systems reviewed negative except as stated in HPI PMFSH - History History Provided By: Patient - Medical History Medical History: Medical History (Last Reviewed 03/12/18 @ 13:00 by Brennen Llanes MD) High cholesterol Afib CAD (coronary artery disease) HTN (hypertension) - Surgical History Surgical History: Surgical History (Last Reviewed 03/12/18 @ 13:00 by Brennen Llanes MD) Hx of shoulder surgery - Tobacco History Second Hand Smoke Exposure: No Smoking Status: Never smoker - Alcohol History How Often Do You Have a Drink Containing Alcohol: Never - Substance Use History Substance History: No History of Abuse - Travel History Recent Travel in the [place] Within the Last 8 Weeks: No Recent Travel Out of the Country Within the Last 8 Weeks: No - Immunization History Tetanus Immunization: >5 Years Medications and Allergies Active Medications: Active Medications Al Hydroxide/Mg Hydroxide (Milk Of Magnesia Liq) 30 ml PO Q12H PRN PRN Reason: Mild Constipation Atorvastatin Calcium (Lipitor) 40 mg PO DAILY [facility] Last Admin: 03/11/18 15:23 Dose: Not Given Bisacodyl (Dulcolax Supp) 10 mg RECTAL DAILY PRN PRN Reason: SEVERE CONSITIPATION Diltiazem HCl (Cardizem Cd 24hr) 240 mg PO DAILY [facility] Last Admin: 03/11/18 20:44 Dose: Not Given Enoxaparin Sodium (Lovenox Inj) 40 mg SQ HS [facility] Last Admin: 03/12/18 03:19 Dose: 40 mg Sodium Chloride (Ns Inj) 1,000 mls @ 80 mls/hr IV.CONT .[id number] [facility] Last Admin: 03/12/18 05:45 Dose: 80 mls/hr Dextrose/Sodium Chloride (D5w/Normal Saline Inj) 1,000 mls @ 80 mls/hr IV.CONT .[id number] [facility] Last Admin: 03/12/18 08:21 Dose: 80 mls/hr Lactulose (Lactulose Liq) 30 ml PO DAILY PRN PRN Reason: SEVERE CONSITIPATION Metoprolol Tartrate (Lopressor Inj) 5 mg IV.PUSH Q5M PRN PRN Reason: for HR>120 Morphine Sulfate (Morphine Inj) 4 mg IV.PUSH Q3H PRN PRN Reason: BREAKTHROUGH PAIN Last Admin: 03/12/18 06:05 Dose: 4 mg Naloxone HCl (Narcan Inj) 0.4 mg IV.PUSH UNSCH PRN PRN Reason: SEE LABEL COMMENTS Ondansetron HCl (Zofran Inj) 4 mg IV.PUSH Q6H PRN PRN Reason: NAUSEA OR VOMITING Rivaroxaban (Xarelto) 20 mg PO DAILY [facility] Last Admin: 03/11/18 15:23 Dose: Not Given Senna/Docusate Sodium (Gabby-Colace) 1 tab PO BID [facility] Last Admin: 03/12/18 08:22 Dose: Not Given Sennosides (Senokot) 17.2 mg PO Q12H PRN PRN Reason: Moderate Constipation Sodium Chloride (Ns Flush) 2 ml IV.FLUSH PRN PRN PRN Reason: FLUSH AFTER USING IV ACCESS Last Admin: 03/11/18 10:16 Dose: 2 ml Allergies Allergy/AdvReac Type Severity Reaction Status Date / Time No Known Allergies Allergy Verified 03/11/18 09:31 Home Medications Medication Instructions Recorded Confirmed Type atorvastatin 20 mg PO DAILY 03/11/18 03/11/18 History diltiazem HCl 240 mg PO DAILY 03/11/18 03/11/18 History gabapentin 300 mg PO TID 03/11/18 03/11/18 History rivaroxaban [Xarelto] 20 mg PO DAILY 03/11/18 03/11/18 History Exam Vital signs: Vital Signs 03/11/18 09:38 03/11/18 10:12 03/11/18 10:30 Temperature 97.9 F 97.8 F 97.7 F Pulse Rate 118 H 116 H 104 H Respiratory Rate 18 17 20 Blood Pressure 156/88 H 166/85 H 158/90 H Pulse Oximetry 98 98 98 03/11/18 11:00 03/11/18 11:30 03/11/18 12:47 Temperature 97.8 F 97.5 F L Pulse Rate 96 H 98 H Respiratory Rate 17 17 16 Blood Pressure 156/93 H 156/88 H Pulse Oximetry 98 98 03/11/18 13:10 03/11/18 13:51 03/11/18 14:07 Temperature 97.7 F 97.8 F Pulse Rate 103 H 101 H Respiratory Rate 16 18 Blood Pressure 157/86 H 169/88 H Pulse Oximetry 98 99 98 03/11/18 15:00 03/11/18 15:32 03/11/18 15:45 Temperature 98 F Pulse Rate 98 H Respiratory Rate 18 17 18 Blood Pressure 158/91 H Pulse Oximetry 96 03/11/18 15:46 03/11/18 19:22 03/11/18 21:26 Temperature 97.7 F Pulse Rate 100 H 104 H Respiratory Rate 16 18 Blood Pressure 158/88 H 164/99 H Pulse Oximetry 97 98 98 03/11/18 21:50 03/11/18 22:00 03/11/18 22:10 Temperature 97.8 F Pulse Rate 87 88 85 Respiratory Rate 17 15 19 Blood Pressure 172/90 H 163/102 H 175/100 H Pulse Oximetry 94 L 96 97 03/11/18 23:00 03/11/18 23:34 03/11/18 23:41 Temperature Pulse Rate 96 H 110 H Respiratory Rate 18 29 H 14 Blood Pressure 181/99 H 191/109 H Pulse Oximetry 97 100 03/11/18 23:43 03/11/18 23:58 03/12/18 00:00 Temperature 97.9 F Pulse Rate 97 H 99 H 95 H Respiratory Rate 27 H 30 H 24 Blood Pressure 213/107 H 164/94 H 172/91 H Pulse Oximetry 100 98 99 03/12/18 01:00 03/12/18 02:00 03/12/18 02:18 Temperature Pulse Rate 88 84 88 Respiratory Rate 21 15 13 Blood Pressure 178/93 H 181/90 H 152/94 H Pulse Oximetry 97 98 97 03/12/18 03:00 03/12/18 04:00 03/12/18 04:02 Temperature 97.9 F Pulse Rate 92 H 86 84 Respiratory Rate 16 15 16 Blood Pressure 162/101 H 167/108 H 187/105 H Pulse Oximetry 99 95 03/12/18 04:21 03/12/18 05:00 03/12/18 05:13 Temperature Pulse Rate 84 80 80 Respiratory Rate 16 10 L 9 L Blood Pressure 161/101 H 176/105 H 172/104 H Pulse Oximetry 98 98 03/12/18 06:00 03/12/18 06:07 03/12/18 06:18 Temperature Pulse Rate 92 H 95 H Respiratory Rate 17 18 27 H Blood Pressure 185/89 H 163/106 H Pulse Oximetry 98 95 03/12/18 06:23 03/12/18 07:00 03/12/18 07:03 Temperature Pulse Rate 94 H 86 85 Respiratory Rate 23 20 11 L Blood Pressure 175/104 H 193/113 H 180/121 H Pulse Oximetry 97 97 99 03/12/18 07:32 03/12/18 08:00 03/12/18 08:22 Temperature 98.3 F Pulse Rate 126 H 115 H Respiratory Rate 29 H 26 H Blood Pressure 194/91 H 167/88 H Pulse Oximetry 98 97 03/12/18 08:38 03/12/18 09:11 Temperature Pulse Rate 113 H Respiratory Rate 16 Blood Pressure Pulse Oximetry Intake & Output 03/11/18 03/12/18 03/12/18 18:59 06:59 18:59 Intake Total 1100 / 1100 1200 / 1200 100 / 100 Output Total 600 / 600 1050 / 1050 Balance 500 / 500 150 / 150 100 / 100 Weight 87.1 kg 80.7 kg Intake: IV 1100 / 1100 1200 / 1200 100 / 100 NS Inj 1,000 ML @ 80 mls/hr IV. 1000 / 1000 CONT .[id number] ANIKET Rx#:[id number] Ofirmev Inj 1,000 mg In 100 ml 100 / 100 200 / 200 100 / 100 @ 400 mls/hr IV.SIG Q6H ANIKET Rx# :[id number] NS Inj 1,000 ML @ 1000 mls/hr 1000 / 1000 IV.SIG BOLUS ANIKET Rx#:[id number] Oral 0 / 0 Output: Urine Amount (Catheter) 600 / 600 1050 / 1050 Indwelling Urethral Catheter 600 / 600 1050 / 1050 Other: Date of Last Bowel Movement 03/10/18 03/10/18 Weight On Admission 80.7 kg Results - Laboratory Findings CBC and BMP: 03/12/18 05:43 03/12/18 05:43 Abnormal lab findings: Abnormal Labs 03/11/18 03/11/18 03/11/18 09:20 09:20 09:30 RBC 4.48 L Plt Count Neut % (Auto) 76.0 H [place] % (Auto) 10.5 H Lymph # (Auto) 0.7 L Carbon Dioxide 20.0 L POC BUN 22 H BUN 27 H Estimated GFR 59 L POC Glucose 114 H Random Glucose 115 H Calcium Total Bilirubin Direct Bilirubin Troponin I Less than 0.02 L Ur Specific [place] Urine Occult Blood Urine RBC Urine Bacteria Urine Mucus Urine Opiates Screen 03/11/18 03/11/18 03/12/18 14:00 14:40 05:43 RBC Plt Count Neut % (Auto) [place] % (Auto) Lymph # (Auto) Carbon Dioxide POC BUN BUN Estimated GFR POC Glucose Random Glucose 59 L Calcium 8.4 L Total Bilirubin 1.1 H Direct Bilirubin 0.3 H Troponin I Ur Specific [place] 1.040 H Urine Occult Blood Small H Urine RBC 8 H Urine Bacteria Rare H Urine Mucus Few H Urine Opiates Screen Pos H 03/12/18 05:43 RBC Plt Count 145 L Neut % (Auto) [place] % (Auto) 12.9 H Lymph # (Auto) Carbon Dioxide POC BUN BUN Estimated GFR POC Glucose Random Glucose Calcium Total Bilirubin Direct Bilirubin Troponin I Ur Specific [place] Urine Occult Blood Urine RBC Urine Bacteria Urine Mucus Urine Opiates Screen Assessment and Plan - Plan I have reviewed the clinical and radiological findings Head CT 03/11/18 09:21 CONCLUSION: 1. The exam demonstrates small areas of decreased attenuation involving the brainstem and hailey most consistent with subacute areas of cortical infarct. 2. No acute intracranial hemorrhage identified. Report was called by [Dr. Kowalski to Dr. Aguila.at 9:45 ] Head CTA 03/11/18 09:27 CONCLUSION: 1. No large vessel occlusions. 2. Suspect more proximal right vertebral artery hemodynamically significant lesion. Report was called by Dr. Martinez to Dr. Mckeon at 0958 AM. Neck CTA 03/11/18 09:27 CONCLUSION: 1. Bilateral calcified carotid plaques without evidence of hemodynamically significant stenosis. 2. Dominant left vertebral artery. 3. No flow in the right vertebral artery. Chest X-Ray 03/11/18 09:29 CONCLUSION: 1. No acute abnormality. Neuro: neuro checks in a serial fashion. Discuss patient case with Dr. Mckeon , MRI of the head is negative for acute stroke Pulmonary: aggressive pulmonary toilette, nasotracheal suction, and breathing treatments with nebulizers. Atrial fibrillation: currently rate control Continue with Cardizem home medication Arterial Hypertension. he will be allowed to have permissive hypertension due to suspicion of acute stroke Continue to monitor vital signs Hold home medication for now Urinary retention. Acute urinary retention. Secondary to pain most likely. No cauda equine We will follow-up bladder scan and order Bedoya catheter if needed Continue to monitor Back pain chronic history of back pain however now complaining of neck, worsening back pain, hip pain and shoulder pain in the setting of acute urinary retention. [place] compression fracture. Recommend lumbar orthosis gabapentin Tylenol IV for pain control Morphine for breakthrough pain Daily PT and OT Renal: Continue to monitor closely urine output, BUN and creatinine Endocrine: Continue to Monitor serial Acu checks and SSI as needed in detail ID continue to monitor for signs of infection Continue Protonix for stress ulcer prophylaxis Continue [place] hose and SCD's for DVT prophylaxis Caprini VTE Risk Assessment Caprini VTE Risk Assessment: Moderate/High Risk (score >= 2) Caprini Risk Assessment Model: Point Value = 1 Point Value = 2 Point Value = 3 Point Value = 5 Age 41-60 Minor surgery BMI > 25 kg/m2 Swollen legs Varicose veins or History of unexplained or recurrent spontaneous Oral contraceptives or hormone replacement Sepsis (< 1 month) Serious lung disease, including pneumonia (< 1 month) Abnormal pulmonary function Acute myocardial infarction Congestive heart failure (< 1 month) History of inflammatory bowel disease Medical patient at bed rest Age 61-74 Arthroscopic surgery Major open surgery (> 45 min) Laparoscopic surgery (> 45 min) Malignancy Confined to bed (> 72 hours) Immobilizing plaster cast Central venous access Age >= 75 History of VTE Family history of VTE Factor V Leiden Prothrombin [id number] Lupus anticoagulant Anticardiolipin antibodies Elevated serum homocysteine Heparin-induced thrombocytopenia Other congenital or acquired thrombophilia Stroke (< 1 month) Elective arthroplasty Hip, pelvis, or leg fracture Acute spinal cord injury (< 1 month) Prophylaxis Regimen: Total Risk Factor Score Risk Level Prophylaxis Regimen 0-1 Low Early ambulation 2 Moderate Order ONE of the following: *Sequential Compression Device (SCD) *Heparin 5000 units SQ BID 3-4 Higher Order ONE of the following medications: *Heparin 5000 units SQ TID *Enoxaparin/Lovenox 40 mg SQ daily (WT < 150 kg, CrCl > 30 mL/min) *Enoxaparin/Lovenox 30 mg SQ daily (WT < 150 kg, CrCl > 10-29 mL/min) *Enoxaparin/Lovenox 30 mg SQ BID (WT < 150 kg, CrCl > 30 mL/min) AND/OR *Sequential Compression Device (SCD) 5 or more Highest Order ONE of the following medications: *Heparin 5000 units SQ TID (Preferred with Epidurals) *Enoxaparin/Lovenox 40 mg SQ daily (WT < 150 kg, CrCl > 30 mL/min) *Enoxaparin/Lovenox 30 mg SQ daily (WT < 150 kg, CrCl > 10-29 mL/min) *Enoxaparin/Lovenox 30 mg SQ BID (WT < 150 kg, CrCl > 30 mL/min) AND *Sequential Compression Device (SCD)
[2018-03-12] MEDS ORDERED: Gadobutrol PF 10 MMOL/10 ML Vial (for RAD) IV.SIG ONE (10:19)
--- NOTE | 2018-03-12 10:48 | MR ---
EXAM DATE: 03/12/2018 10:33 AM EST AGE/SEX: 67 years / Male INDICATIONS: Altered mental status. CVA. CLINICAL DATA: This is the patient's subsequent encounter. Patient reports that signs and symptoms h ave been present for 2 days and indicates a pain score of 0/10. MEDICAL/SURGICAL HISTORY: Hypertension. Hypercholesterolemia. Afib. . Right shoulder surgery. [place] [facility] [place]/O [place] 03/11/2018. . TECHNIQUE: Multiplanar, multisequence examination of the brain was performed without and with 8.5 ml Gadavist (gadobutrol) contrast as a single exam dose. FINDINGS: Cerebrum: Encephalomalacia is noted in the anterior left temporal lobe. This is unchanged indicating old insult. No evidence of intracranial mass lesion or mass effect. No acute intracranial hemorrhage . No extra-axial fluid collection. No evidence of acute infarct. White Matter: Periventricular and subcortical white matter hyperintensities indicating chronic small vessel ischemic change. Posterior Fossa: The cerebellum and brainstem are intact. The 4th ventricle is midline. The cerebel lopontine angle is unremarkable. The cerebellar tonsils are normal in position. Diffusion Imaging: No focal areas of restricted diffusion are seen. No evidence of acute infarction . Extracranial: The visualized portions of the orbits and paranasal sinuses are unremarkable. Post Contrast: No abnormal areas of parenchymal or dural enhancement. No evidence of blood-brain ba rrier breakdown. CONCLUSION: No acute intracranial findings. No significant interval change. Left temporal lobe encephalomalacia a gain seen. Electronically signed by: Cruz Wyatt MD 03/12/2018 10:47 AM EST
[2018-03-12] MEDS ORDERED: Naloxone Inj 0.4 MG/ML Vial IV.PUSH PRN (11:28)
[2018-03-12] MEDS ORDERED: Rivaroxaban 20 MG Tablet PO SCH (11:30)
[2018-03-12] MEDS: Calcitonin Salmon Nasal 200 UNITS/Actuation - (3.7 ML) NASAL SCH (14:00)
[2018-03-12] MEDS: Rivaroxaban 20 MG Tablet PO SCH (14:58)
[2018-03-12] MEDS: dilTIAZem CD 240 MG Capsule PO SCH (14:58)
--- NOTE | 2018-03-12 17:04 | P.PNFP ---
Subjective Interval history: Patient is lying in bed. He is complaining of severe pain in his lower back. Otherwise without complaints. Initially failed swallow evaluation, but is now passed for mechanical soft and thin liquids. He is continuing to have left facial droop and significant left side upper and lower extremity weakness, and milder right upper and lower extremity weakness. Also still complaining of visual blurriness and questionable diplopia. Dysphagia improving. Does not report fever, chills, chest pain, shortness of breath, abdominal pain. Still with Bedoya catheter, to be pulled today for voiding trial, for acute urinary retention. Results - Labs Result diagrams: 03/12/18 05:43 03/12/18 05:43 Abnormal lab results 03/11/18 03/12/18 03/12/18 Range/Units 14:40 05:43 05:43 Plt Count 145 L (150-450) th/mm3 [place] % (Auto) 12.9 H (0.0-8.0) % Random Glucose 59 L (74-106) mg/dL Calcium 8.4 L (8.5-10.1) mg/dL Total Bilirubin 1.1 H (0.2-1.0) mg/dL Direct Bilirubin 0.3 H (0.0-0.2) mg/dL Urine Opiates Screen Pos H (Neg) Short CBC 03/12/18 Range/Units 05:43 WBC 5.5 (4.0-11.0) th/mm3 Hgb 14.4 (13.0-17.0) gm/dL Hct 42.3 (39.0-51.0) % Plt Count 145 L (150-450) th/mm3 BMP 03/12/18 05:43 Sodium 142 Potassium 3.9 Chloride 107 Carbon Dioxide 24.5 BUN 17 Creatinine 0.79 Calcium 8.4 L Cardiac Enzymes 03/12/18 Range/Units 05:43 Total Creatine Kinase 249 (39-308) U/L Liver Function 03/12/18 Range/Units 05:43 Total Bilirubin 1.1 H (0.2-1.0) mg/dL Direct Bilirubin 0.3 H (0.0-0.2) mg/dL AST 23 (15-37) U/L ALT 18 (12-78) U/L Alkaline Phosphatase 111 (45-117) U/L Albumin 3.4 (3.4-5.0) g/dL - Imaging Impressions Cervical Spine MRI 03/11/18 00:00 CONCLUSION: 1. No subluxation or definite acute fracture of the cervical spine. There is prominent endplate marrow edema towards the right at C5/C6 but I believe this is reactive. No discrete fracture line is demonstrated and perivertebral soft tissues are within normal limits.. 2. Multilevel cervical spine degenerative changes as detailed above. Lumbar Spine MRI 03/11/18 00:00 CONCLUSION: 1. No acute fracture or subluxation of the lumbar spine. 2. Chronic moderate to severe L3 compression deformity without associated foraminal or spinal stenosis. 3. Severe edema and loss of height of the L4/L5 intervertebral disc. There is irregularity and marrow edema of the adjacent vertebral body endplates. Discitis /osteomyelitis possible in the proper clinical setting. There is mild to moderate spinal stenosis and [id number] right, moderate left foraminal stenosis at this level. 4. Typical-appearing degenerative changes elsewhere. Mild bilateral foraminal stenosis at L2/L3 and L3/L4. 5. Scoliosis. Thoracic Spine MRI 03/11/18 00:00 CONCLUSION: 1. T8/T9 intervertebral disc has a small herniation into the adjacent inferior endplate of T8 which could be acute or subacute in age. 2. Mild scoliosis. 3. Otherwise negative MRI of the thoracic spine. Head MRI 03/12/18 10:00 CONCLUSION: No acute intracranial findings. No significant interval change. Left temporal lobe encephalomalacia again seen. Physical Exam Vital signs: Vital Signs 03/11/18 19:22 03/11/18 21:26 03/11/18 21:50 Temperature 97.8 F Pulse Rate 104 H 87 Respiratory Rate 18 17 Blood Pressure 164/99 H 172/90 H Pulse Oximetry 98 98 94 L 03/11/18 22:00 03/11/18 22:10 03/11/18 23:00 Temperature Pulse Rate 88 85 96 H Respiratory Rate 15 19 18 Blood Pressure 163/102 H 175/100 H 181/99 H Pulse Oximetry 96 97 97 03/11/18 23:34 03/11/18 23:41 03/11/18 23:43 Temperature Pulse Rate 110 H 97 H Respiratory Rate 29 H 14 27 H Blood Pressure 191/109 H 213/107 H Pulse Oximetry 100 100 03/11/18 23:58 03/12/18 00:00 03/12/18 01:00 Temperature 97.9 F Pulse Rate 99 H 95 H 88 Respiratory Rate 30 H 24 21 Blood Pressure 164/94 H 172/91 H 178/93 H Pulse Oximetry 98 99 97 03/12/18 02:00 03/12/18 02:18 03/12/18 03:00 Temperature Pulse Rate 84 88 92 H Respiratory Rate 15 13 16 Blood Pressure 181/90 H 152/94 H 162/101 H Pulse Oximetry 98 97 99 03/12/18 04:00 03/12/18 04:02 03/12/18 04:21 Temperature 97.9 F Pulse Rate 86 84 84 Respiratory Rate 15 16 16 Blood Pressure 167/108 H 187/105 H 161/101 H Pulse Oximetry 95 98 03/12/18 05:00 03/12/18 05:13 03/12/18 06:00 Temperature Pulse Rate 80 80 92 H Respiratory Rate 10 L 9 L 17 Blood Pressure 176/105 H 172/104 H 185/89 H Pulse Oximetry 98 98 03/12/18 06:07 03/12/18 06:18 03/12/18 06:23 Temperature Pulse Rate 95 H 94 H Respiratory Rate 18 27 H 23 Blood Pressure 163/106 H 175/104 H Pulse Oximetry 95 97 03/12/18 07:00 03/12/18 07:03 03/12/18 07:32 Temperature Pulse Rate 86 85 126 H Respiratory Rate 20 11 L 29 H Blood Pressure 193/113 H 180/121 H 194/91 H Pulse Oximetry 97 99 03/12/18 08:00 03/12/18 08:22 03/12/18 08:38 Temperature 98.3 F Pulse Rate 115 H 113 H Respiratory Rate 26 H Blood Pressure 167/88 H Pulse Oximetry 98 97 03/12/18 09:00 03/12/18 09:11 03/12/18 10:30 Temperature Pulse Rate 107 H 108 H Respiratory Rate 17 16 Blood Pressure 159/87 H Pulse Oximetry 98 99 03/12/18 11:00 03/12/18 11:06 03/12/18 11:30 Temperature Pulse Rate 126 H 119 H 108 H Respiratory Rate 26 H 15 13 Blood Pressure 148/94 H 160/105 H Pulse Oximetry 95 96 98 03/12/18 12:00 03/12/18 12:30 03/12/18 13:00 Temperature 98.2 F Pulse Rate 105 H 96 H 110 H Respiratory Rate 16 16 18 Blood Pressure 150/86 H 150/99 H 152/83 H Pulse Oximetry 98 98 98 03/12/18 13:30 03/12/18 14:00 03/12/18 14:30 Temperature Pulse Rate 114 H 123 H 145 H Respiratory Rate 17 19 30 H Blood Pressure 177/90 H 136/80 Pulse Oximetry 98 98 79 L 03/12/18 14:57 03/12/18 15:00 03/12/18 15:30 Temperature 98.3 F Pulse Rate 117 H 109 H Respiratory Rate 16 15 19 Blood Pressure 141/81 H Pulse Oximetry 98 99 03/12/18 15:51 03/12/18 15:57 03/12/18 16:00 Temperature Pulse Rate 111 H Respiratory Rate 16 20 38 H Blood Pressure 133/90 156/91 H Pulse Oximetry 98 86 L 03/12/18 16:14 Temperature Pulse Rate Respiratory Rate 12 Blood Pressure Pulse Oximetry Intake & Output 03/11/18 03/12/18 03/12/18 18:59 06:59 18:59 Intake Total 1100 / 1100 1200 / 1200 1000 / 1000 Output Total 600 / 600 1050 / 1050 Balance 500 / 500 150 / 150 1000 / 1000 Weight 87.1 kg 80.7 kg Intake: IV 1100 / 1100 1200 / 1200 1000 / 1000 NS Inj 1,000 ML @ 80 mls/hr IV. 1000 / 1000 450 / 450 CONT .[id number] ANIKET Rx#:[id number] Ofirmev Inj 1,000 mg In 100 ml 100 / 100 200 / 200 100 / 100 @ 400 mls/hr IV.SIG Q6H ANIKET Rx# :[id number] NS Inj 1,000 ML @ 1000 mls/hr 1000 / 1000 IV.SIG BOLUS ANIKET Rx#:[id number] Oral 0 / 0 Output: Urine Amount (Catheter) 600 / 600 1050 / 1050 Indwelling Urethral Catheter 600 / 600 1050 / 1050 Other: Date of Last Bowel Movement 03/10/18 03/10/18 Weight On Admission 80.7 kg Narrative: General: Lying in bed, moderate distress from pain Skin: No rashes or lesions, no wounds seen, unable to check sacrum due to significant pain at time of exam HEENT: Normocephalic, no conjunctivitis, no nasal discharge Neck: Supple, no JVD CV: RRR, no murmurs, rubs, gallops, regular pulses Lungs: CTAB, no wheezing, rales, rhonchi Abdomen: TTP throughout, voluntary guarding, no rebound tenderness, normal bowel sounds, states pain with palpation refers to his back Neuro: Awake, alert, speech mildly slurred, left facial droop, left upper extremity 3/5, left lower extremity 2/5, right upper extremity 4/5, right lower extremity 4/5 strength, sensation diminished left side, visual defect left eye, states he sees "2 faces", difficulty with visual thomsa, difficulty with EOMI, pupils are reactive to light/accommodation, DTR left 1+, right 2+ - Urinary Catheter Management Indwelling Urethral Catheter Cath placed during this visit: yes, but has since been removed by the nurse Reason for continuing: Decision to DC catheter Insertion date: 03/11/18 Insertion time: 14:50 Removal date: 03/12/18 Removal time: 16:01 Assessment and Plan - Assessment (1) Left-sided weakness Code(s): R53.1 - Weakness Status: Acute Plan: Patient is a 67-year-old male with past medical history of A. fib on Xarelto, prior TX and prior CVA and lower back pain presenting to the ED after suffering a fall. Fall was preceded by left sided weakness. Has left sided weakness, left facial droop, blurry vision, possible diplopia, dysphagia. Head CT: Decreased attenuation involving the brainstem and hailey most consistent with subacute areas of cortical infarct, no acute intracranial hemorrhage. CTA neck: Bilateral calcified carotid plaques without any evidence of hemodynamic significant stenosis. CTA thoracic abdominal aorta: No acute aneurysm or dissection, focal moderate to severe stenosis of the left renal artery origin. Moderate L3 compression deformity of unknown chronicity, suspect chronic. MRI head with and without contrast: Old left temporal lobe infarct. No evidence of acute intracranial pathology or masses identified. Repeat MRI head 02/09/18: no changes, still no acute process Chest x-ray: No acute abnormalities EKG: Atrial fibrillation, rate controlled TSH: Normal Cholesterol: Normal EEG normal B12: normal UA showing dehydration, no infection - Neurology on board, appreciate recommendations - Will require rehabilitation, physical therapy, occupational therapy, possibly speech therapy - Continue Xarelto given atrial fibrillation - Continue statin - Could consider myasthenia gravis workup, but this does not look like MG on exam (2) Compression fracture Status: Chronic Plan: History of chronic low back pain. Compression fracture lumbar vertebrae seen on MRI, likely chronic. - Neurosurgery on board, appreciate recommendations. Recommends lumbar orthosis. - Continue physical and occupational therapy, will need rehab. - Pain control: Calcitonin salmon nasal spray daily, oxycodone 5 mg PO q8hrs PRN pain 6-10, morphine 4 mg IV q3hrs PRN breakthrough pain, (3) Urinary retention Code(s): R33.9 - Retention of urine, unspecified Status: Acute Plan: Patient with acute urinary retention Remove Bedoya today for voiding trial DDx: BPH, spinal cord injury from fall, medication side effect, constipation, mass. Do not see anticholinergic medications on list. (4) Atrial fibrillation Code(s): I48.91 - Unspecified atrial fibrillation Status: Chronic Plan: Patient is currently rate control Continue with Cardizem home medication Continue Xarelto for anticoagulation (5) Hypertension Code(s): I10 - Essential (primary) hypertension Status: Chronic Plan: Target SBP 140-160 Continue Cardizem from home PRN meds (6) Nutrition, metabolism, and development symptoms Code(s): R63.8 - Other symptoms and signs concerning food and fluid intake Status: Acute Plan: Fluids: 80 ml per hour, discontinue once eating/drinking Electrolyte: replace as needed Diet: mechanical soft with thin liquids DVT prophylaxis: SCDs and c/w home Xarelto daily - Assessment and Plan Discussed Condition With: Seen and discussed with Dr. Tenorio, Dr. Velasquez, Dr. Rodriguez, Dr. Grullon (4) Atrial fibrillation Qualifiers: Atrial fibrillation type: chronic Qualified Code(s): I48.2 - Chronic atrial fibrillation
[2018-03-13] MEDS: Rivaroxaban 20 MG Tablet PO SCH ×2 (00:28→08:15)
[2018-03-13] MEDS: Morphine Inj 4 MG/ML Vial IV.PUSH PRN ×4 (03:12→15:59)
[2018-03-13] MEDS: Sod Chloride 0.9% Inj 1,000 ML IV.CONT SCH (04:48)
[2018-03-13 07:36] LABS: Baso % (Auto) 0.7 % (0.0-2.0); Eos # (Auto) 0.1 th/mm3 (0.0-0.4); Eos % (Auto) 2.1 % (0.0-4.0); Hematocrit 38.2 % (39.0-51.0); Mean Corpuscular HGB Conc 34.1 % (32.0-36.0); Mean Corpuscular Hemoglobin 31.1 pg (27.0-34.0); Mean Corpuscular Volume 91.4 fL (80.0-100.0); Mono # (Auto) 0.7 th/mm3 (0.0-0.9); Mono % (Auto) 14.8 % (0.0-8.0); Neut # (Auto) 2.7 th/mm3 (1.8-7.7); Neut % (Auto) 60.4 % (16.0-70.0); Platelet Count 143 th/mm3 (150-450); Red Blood Count 4.18 mil/mm3 (4.50-5.90); Red Cell Distribution Width 14.5 % (11.6-17.2); White Blood Count 4.5 th/mm3 (4.0-11.0)
[2018-03-13 07:59] LABS: Anion Gap 11 meq/L (5-15); Aspartate Aminotransferase 17 U/L (15-37); Blood Urea Nitrogen 12 mg/dL (7-18); Chloride 108 meq/L (98-107); Glomerular Filtration Rate Greater Than 89 mL/min (>89); Glucose,Random 83 mg/dL (74-106); Potassium 3.5 meq/L (3.5-5.1); Sodium 143 meq/L (136-145)
[2018-03-13 08:03] LABS: Alanine Aminotransferase 15 U/L (12-78); Alkaline Phosphatase 99 U/L (45-117)
[2018-03-13] MEDS: Senna/Docusate Sodium 8.6/50 MG Tablet PO SCH (08:14)
[2018-03-13] MEDS: dilTIAZem CD 240 MG Capsule PO SCH (08:15)
[2018-03-13] MEDS: Calcitonin Salmon Nasal 200 UNITS/Actuation - (3.7 ML) NASAL SCH (08:19)
--- NOTE | 2018-03-13 10:11 | P.PNFP ---
Subjective Interval history: Patient seen and examined at bedside this morning. Overnight patient passed the voiding trial. Denies any issues with urination. Patient is lying in bed. He reports that his lower back pain is slightly improved with current medication regimen. Slurred speech has improved, patient is alert and oriented x3. He continues to have significant Left sided upper and lower extremity weakness, however it is improved from admission. He reports that his blurry and double vision is slightly improving as well. Does not report fever, chills, chest pain, shortness of breath, abdominal pain. In discussing disposition with patient pt reports that he lives in [place] with his son. However, his son is currently very upset with him and is not returning his calls because he was not happy with him visiting [place]. Patient is interested in going to rehab. Case management was consulted yesterday and they are working on placement for the patient. 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 Although patient reports that his left-sided weakness had improved prior to his current status. <Iam Tenorio D - 03/13/18 11:05> Results - Labs Result diagrams: 03/13/18 07:04 03/13/18 07:04 <Artis Jung L - 03/13/18 19:25> Abnormal lab results 03/13/18 03/13/18 Range/Units 07:04 07:04 RBC 4.18 L (4.50-5.90) mil/mm3 Hct 38.2 L (39.0-51.0) % Plt Count 143 L (150-450) th/mm3 [place] % (Auto) 14.8 H (0.0-8.0) % Chloride 108 H (98-107) meq/L Calcium 8.0 L (8.5-10.1) mg/dL Total Protein 6.0 L D (6.4-8.2) g/dL Albumin 3.0 L (3.4-5.0) g/dL Short CBC 03/13/18 Range/Units 07:04 WBC 4.5 (4.0-11.0) th/mm3 Hgb 13.0 (13.0-17.0) gm/dL Hct 38.2 L (39.0-51.0) % Plt Count 143 L (150-450) th/mm3 [facility] 03/13/18 07:04 Sodium 143 Potassium 3.5 Chloride 108 H Carbon Dioxide 24.0 BUN 12 Creatinine 0.79 Calcium 8.0 L Liver Function 03/13/18 Range/Units 07:04 Total Bilirubin 0.6 (0.2-1.0) mg/dL AST 17 (15-37) U/L ALT 15 (12-78) U/L Alkaline Phosphatase 99 (45-117) U/L Albumin 3.0 L (3.4-5.0) g/dL <Artis Jung L - 03/13/18 19:25> Abnormal lab results 03/13/18 03/13/18 Range/Units 07:04 07:04 RBC 4.18 L (4.50-5.90) mil/mm3 Hct 38.2 L (39.0-51.0) % Plt Count 143 L (150-450) th/mm3 [place] % (Auto) 14.8 H (0.0-8.0) % Chloride 108 H (98-107) meq/L Calcium 8.0 L (8.5-10.1) mg/dL Total Protein 6.0 L D (6.4-8.2) g/dL Albumin 3.0 L (3.4-5.0) g/dL Short CBC 03/13/18 Range/Units 07:04 WBC 4.5 (4.0-11.0) th/mm3 Hgb 13.0 (13.0-17.0) gm/dL Hct 38.2 L (39.0-51.0) % Plt Count 143 L (150-450) th/mm3 [facility] 03/13/18 07:04 Sodium 143 Potassium 3.5 Chloride 108 H Carbon Dioxide 24.0 BUN 12 Creatinine 0.79 Calcium 8.0 L Liver Function 03/13/18 Range/Units 07:04 Total Bilirubin 0.6 (0.2-1.0) mg/dL AST 17 (15-37) U/L ALT 15 (12-78) U/L Alkaline Phosphatase 99 (45-117) U/L Albumin 3.0 L (3.4-5.0) g/dL <Iam Tenorio D - 03/13/18 10:11> - Imaging Impressions Head MRI 03/12/18 10:00 CONCLUSION: No acute intracranial findings. No significant interval change. Left temporal lobe encephalomalacia again seen. <Iam Tenorio D - 03/13/18 10:11> Physical Exam Vital signs: Vital Signs 03/12/18 20:00 03/13/18 00:00 03/13/18 04:00 Temperature 98.1 F 97.9 F 97.9 F Pulse Rate 90 75 93 H Respiratory Rate 18 18 18 Blood Pressure 159/92 H 141/85 H 145/92 H Pulse Oximetry 99 98 94 L 03/13/18 08:00 03/13/18 11:39 03/13/18 14:45 Temperature 98 F 98.6 F Pulse Rate 74 98 H Respiratory Rate 18 20 Blood Pressure 157/91 H 144/70 H Pulse Oximetry 99 98 95 03/13/18 15:30 Temperature 98 F Pulse Rate 72 Respiratory Rate 18 Blood Pressure 111/69 Pulse Oximetry 97 Intake & Output 03/13/18 03/13/18 03/14/18 06:59 18:59 06:59 Intake Total 1000 / 1000 500 / 500 Output Total 625 / 625 2100 / 2100 Balance 375 / 375 -1600 / -1600 Intake: IV 1000 / 1000 NS Inj 1,000 ML @ 80 mls/hr IV. 1000 / 1000 CONT .[id number] [facility] Rx#:[id number] Oral 500 / 500 Output: Urine 625 / 625 2100 / 2100 Other: Date of Last Bowel Movement 03/10/18 03/10/18 <Artis Jung L - 03/13/18 19:25> Vital Signs 03/12/18 10:30 03/12/18 11:00 03/12/18 11:06 Temperature Pulse Rate 108 H 126 H 119 H Respiratory Rate 26 H 15 Blood Pressure 148/94 H Pulse Oximetry 99 95 96 03/12/18 11:30 03/12/18 12:00 03/12/18 12:30 Temperature 98.2 F Pulse Rate 108 H 105 H 96 H Respiratory Rate 13 16 16 Blood Pressure 160/105 H 150/86 H 150/99 H Pulse Oximetry 98 98 98 03/12/18 13:00 03/12/18 13:30 03/12/18 14:00 Temperature Pulse Rate 110 H 114 H 123 H Respiratory Rate 18 17 19 Blood Pressure 152/83 H 177/90 H Pulse Oximetry 98 98 98 03/12/18 14:30 03/12/18 14:57 03/12/18 15:00 Temperature Pulse Rate 145 H 117 H Respiratory Rate 30 H 16 15 Blood Pressure 136/80 141/81 H Pulse Oximetry 79 L 98 03/12/18 15:30 03/12/18 15:51 03/12/18 15:57 Temperature 98.3 F Pulse Rate 109 H 111 H Respiratory Rate 19 16 20 Blood Pressure 133/90 Pulse Oximetry 99 98 03/12/18 16:00 03/12/18 16:14 03/12/18 20:00 Temperature 98.1 F Pulse Rate 90 Respiratory Rate 38 H 12 18 Blood Pressure 156/91 H 159/92 H Pulse Oximetry 86 L 99 03/13/18 00:00 03/13/18 04:00 03/13/18 08:00 Temperature 97.9 F 97.9 F 98 F Pulse Rate 75 93 H 74 Respiratory Rate 18 18 18 Blood Pressure 141/85 H 145/92 H 157/91 H Pulse Oximetry 98 94 L 99 Intake & Output 03/12/18 03/13/18 03/13/18 18:59 06:59 18:59 Intake Total 1000 / 1000 1000 / 1000 Output Total 625 / 625 600 / 600 Balance 1000 / 1000 375 / 375 -600 / -600 Intake: IV 1000 / 1000 1000 / 1000 NS Inj 1,000 ML @ 80 mls/hr IV. 450 / 450 1000 / 1000 CONT .[id number] [facility] Rx#:[id number] Ofirmev Inj 1,000 mg In 100 ml 100 / 100 @ 400 mls/hr IV.SIG Q6H [facility] Rx# :[id number] Output: Urine 625 / 625 600 / 600 Other: Date of Last Bowel Movement 03/10/18 03/10/18 <Iam Tenorio D - 03/13/18 10:11> Narrative: General: Lying in bed, NAD Skin: No rashes or lesions, no wounds seen, unable to check sacrum due to significant pain at time of exam HEENT: Normocephalic, no conjunctivitis, no nasal discharge Neck: Supple, no JVD CV: RRR, no murmurs, rubs, gallops, regular pulses Lungs: CTAB, no wheezing, rales, rhonchi Abdomen: TTP throughout, voluntary guarding, no rebound tenderness, normal bowel sounds, states pain with palpation refers to his back Neuro: Awake, alert, speech mildly slurred, left facial droop, left upper extremity 3/5, left lower extremity 3/5, right upper extremity 4/5, right lower extremity 4/5 strength, sensation diminished left side, visual defect left eye, states he sees "2 faces", difficulty with visual thomas, difficulty with EOMI, pupils are reactive to light/accommodation, DTR left 1+, right 2+ <Iam Tenorio - 03/13/18 11:05> - Urinary Catheter Management Indwelling Urethral Catheter Cath placed during this visit: no <Artis Jung Junie - 03/13/18 19:25> yes, but has since been removed by the nurse <Iam Tenorio - 03/13/18 11:05> Reason for continuing: Decision to DC catheter <Iam Tenorio - 03/13/18 10: 11> Insertion date: 03/11/18 <Iam Tenorio - 03/13/18 10:11> Insertion time: 14:50 <Iam Tenorio - 03/13/18 10:11> Removal date: 03/12/18 <Iam Tenoiro D - 03/13/18 10:11> Removal time: 16:01 <Iam Tenorio - 03/13/18 10:11> Assessment and Plan - Assessment (1) Left-sided weakness Code(s): R53.1 - Weakness Status: Acute (2) Compression fracture Status: Chronic (3) Urinary retention Code(s): R33.9 - Retention of urine, unspecified Status: Resolved (4) Atrial fibrillation Code(s): I48.91 - Unspecified atrial fibrillation Status: Chronic (5) Hypertension Code(s): I10 - Essential (primary) hypertension Status: Chronic (6) Nutrition, metabolism, and development symptoms Code(s): R63.8 - Other symptoms and signs concerning food and fluid intake Status: Acute <Artis Jung - 03/13/18 19:25> (1) Left-sided weakness Code(s): R53.1 - Weakness Status: Acute Plan: Patient is a 67-year-old male with past medical history of A. fib on Xarelto, prior [place], prior CVA and lower back pain presenting to the ED after suffering a fall. Fall was preceded by left sided weakness. Has left sided weakness, left facial droop, blurry vision, possible diplopia, dysphagia. Head CT: Decreased attenuation involving the brainstem and hailey most consistent with subacute areas of cortical infarct, no acute intracranial hemorrhage. CTA neck: Bilateral calcified carotid plaques without any evidence of hemodynamic significant stenosis. CTA thoracic abdominal aorta: No acute aneurysm or dissection, focal moderate to severe stenosis of the left renal artery origin. Moderate L3 compression deformity of unknown chronicity, suspect chronic. MRI head with and without contrast: Old left temporal lobe infarct. No evidence of acute intracranial pathology or masses identified. Repeat MRI head 02/09/18: no changes, still no acute process Chest x-ray: No acute abnormalities EKG: Atrial fibrillation, rate controlled TSH: Normal Cholesterol: Normal EEG normal B12: normal UA showing dehydration, no infection - Neurology on board, appreciate recommendations - Will require rehabilitation, physical therapy, occupational therapy, possibly speech therapy - Continue Xarelto given atrial fibrillation - Continue statin (2) Compression fracture Status: Chronic Plan: History of chronic low back pain. Compression fracture lumbar vertebrae seen on MRI, likely chronic. - Neurosurgery on board, appreciate recommendations. Recommends lumbar orthosis. - Continue physical and occupational therapy, will need rehab. - Pain control: Calcitonin salmon nasal spray daily, oxycodone 5 mg PO q8hrs PRN pain 6-10, morphine 4 mg IV q3hrs PRN breakthrough pain, (3) Urinary retention Code(s): R33.9 - Retention of urine, unspecified Status: Resolved Plan: Patient with acute urinary retention on admission exam Passed voiding trial and denies any urinary sxs Do not see anticholinergic medications on list. (4) Atrial fibrillation Code(s): I48.91 - Unspecified atrial fibrillation Status: Chronic Plan: Patient is currently rate control Continue with Cardizem home medication Continue Xarelto for anticoagulation (5) Hypertension Code(s): I10 - Essential (primary) hypertension Status: Chronic Plan: Target SBP 140-160 Continue Cardizem from home PRN meds (6) Nutrition, metabolism, and development symptoms Code(s): R63.8 - Other symptoms and signs concerning food and fluid intake Status: Acute Plan: Fluids: 80 ml per hour, discontinue once eating/drinking Electrolyte: replace as needed Diet: mechanical soft with thin liquids, per speech therapy recommendations DVT prophylaxis: SCDs and c/w home Xarelto daily Dispo: CM consulted, awaiting rehab placement, 3008 form in chart <Iam Tenorio - 03/13/18 10:37> - Attending Attestation The exam, history, and the medical decision-making described in the above note were completed with the assistance of the resident physician. I reviewed and agree with the findings presented. I attest that I had a [id number] encounter with the patient on the same day, and personally performed and documented my assessment and findings in the medical record. Patient has residual left sided weakness from prior stroke, uncertain how much of this is due to prior stroke. Workup this admission negative for an acute CVA. He has chronic compression fractures of the lumbar vertebrae that may help contribute to his symptoms. His left sided weakness is somewhat improved by my exam, able to move against gravity. Left facial droop about the same. Still complaining of visual blurriness but notes that some of this is chronic. Reviewed discharge plan with him. <ErichArtis Junie - 03/13/18 19:25> <Iam Tenorio D - Last Filed: 03/13/18 10:37> (4) Atrial fibrillation Qualifiers: Atrial fibrillation type: chronic Qualified Code(s): I48.2 - Chronic atrial fibrillation <Artis Jung Junie - Last Filed: 03/13/18 19:25> (4) Atrial fibrillation Qualifiers: Atrial fibrillation type: chronic Qualified Code(s): I48.2 - Chronic atrial fibrillation <Iam Tenorio D - Last Filed: 03/13/18 10:37> (4) Atrial fibrillation Qualifiers: Atrial fibrillation type: chronic Qualified Code(s): I48.2 - Chronic atrial fibrillation <Artis Jung L - Last Filed: 03/13/18 19:25> (4) Atrial fibrillation Qualifiers: Atrial fibrillation type: chronic Qualified Code(s): I48.2 - Chronic atrial fibrillation
[2018-03-13 15:31] VITALS: BP 111/69; PULSE 72; RESP 18; TEMP 98; O2SAT 97
[2018-03-13 15:36] LABS: Anti-Nuclear Antibody Screen Neg (Neg)
--- NOTE | 2018-03-14 08:50 | P.DS ---
Date of admission: 03/11/18 19:15 Primary care physician: UNKNOWN Attending physician on discharge: Artis Jung Anticipated date of discharge: 03/13/18 Brief History from admission: Patient is a 67-year-old male with past medical history of A. fib on Xarelto, prior [place] and prior CVA and lower back pain presenting to the ED after suffering a fall and developing slurred speech and left-sided weakness. History limited to patient's ability to answer question due to slurred speech. Patient reports that he was walking and noticed pain on his head and then fell injuring his neck and back. After the fall patient noted to have slurred speech and left- sided weakness. Patient was found on the sidewalk. He is able to answer yes/no questions. He is alert and oriented x3. Endorses pain of left side of abdomen, neck, back, hips and shoulders. Denies any chest pain, fever, chills, dizziness, or seizures. Patient is very tearful and upset with current status. He reports he is not able to urinate and this is a new issue for him. Endorses blurry vision worse on left side. He reports he is not having any difficulties breathing and is able to tolerate secretions. Once patient arrived to the ED stroke alert was called. CT head was negative for bleeding. Of note patient is not a TPA candidate due to being on Xarelto. DS: Diagnosis - Discharge Diagnosis (1) Left-sided weakness Status: Acute (2) Compression fracture Status: Chronic (3) Atrial fibrillation Status: Chronic (4) Hypertension Status: Chronic (5) Nutrition, metabolism, and development symptoms Status: Acute DS: Medications - Discharge Medications Prescriptions: atorvastatin 40 mg PO DAILY 30 Days #30 tab calcitonin (salmon) 1 sprays NASAL DAILY 30 Days ml diltiazem HCl 240 mg PO DAILY 30 Days #30 cap oxycodone 5 mg PO Q8H PRN 3 Days #9 tab PRN Reason: Pain Scale 6 To 10 rivaroxaban [Xarelto] 20 mg PO BID 30 Days #60 tab sennosides-docusate sodium [Senna Plus] 1 tab PO BID 30 Days #60 tab DS: Summary Hospital Course: presented to the ED on 03/11/18 with complaints of left-sided weakness and slurred speech after suffering a fall. No recent hospitalizations. The workup on this admission revealed: CBC, coag profile, CMP, UA, RPR, and SILVANO were all within normal limits. Vital signs within normal limits however patient developed slight tachycardia and hypertension that eventually resolved prior to discharge. Patient was placed on stroke protocol. Neurology was consulted. Multiple imaging studies were done to help in the evaluation of suspected stroke. Head CT was negative for acute intracranial hemorrhage. Neck, head and thoracic aorta CTA were negative. Repeat MRI showed no acute stroke findings. Based on neurology's evaluation no further workup was indicated. Patient was to continue with Xarelto twice daily and statin statin with disposition plan to a rehab facility for extensive therapy. During admission exam pt reported acute urinary retention. In the setting of acute urinary retention with worsening back pain and neck pain MRI of cervical, thoracic and lumbar spine were done, showed no acute fracture or subluxation of the lumbar, thoracic or cervical spine, severe edema and loss of height in L4/ L5, multilevel cervical spine degenerative changes, endplate marrow edema towards the right at C5/C6 thought to be reactive. Neurosurgery was consulted for evaluation of any surgical intervention, imaging was reviewed and patient was determined to not need any surgical intervention by neurosurgery with recommendations for a orthosis and rehab. Urinary retention most likely due to exacerbated pain after the fall , but it resolved prior to discharge. He passed voiding tests and had no other urinary symptoms after second day of hospitalization. - Time Spent with Patient Total time spent providing and/or coordinating discharge services: Greater than 30 minutes - Quality: Stroke Last date observed well: 03/11/18 Last time observed well: 07:00 - Quality: VTE Deep Vein Thrombosis/Pulmonary Embolism Present on Admission: No Exam Vital signs: Vital Signs 03/13/18 11:39 03/13/18 14:45 03/13/18 15:30 Temperature 98.6 F 98 F Pulse Rate 98 H 72 Respiratory Rate 20 18 Blood Pressure 144/70 H 111/69 Pulse Oximetry 98 95 97 Intake & Output 03/13/18 03/14/18 03/14/18 18:59 06:59 18:59 Intake Total 500 / 500 Output Total 2099 Balance -1600 / -1600 Intake: Oral 500 / 500 Output: Urine 2099 Other: Date of Last Bowel Movement 03/10/18 Narrative: General: Lying in bed, NAD Skin: No rashes or lesions, no wounds seen, unable to check sacrum due to significant pain at time of exam HEENT: Normocephalic, no conjunctivitis, no nasal discharge Neck: Supple, no JVD CV: RRR, no murmurs, rubs, gallops, regular pulses Lungs: CTAB, no wheezing, rales, rhonchi Abdomen: TTP throughout, voluntary guarding, no rebound tenderness, normal bowel sounds, states pain with palpation refers to his back Neuro: Awake, alert, speech mildly slurred, left facial droop, left upper extremity 3/5, left lower extremity 3/5, right upper extremity 4/5, right lower extremity 4/5 strength, sensation diminished left side, visual defect left eye, states he sees "2 faces", difficulty with visual thomas, difficulty with EOMI, pupils are reactive to light/accommodation, DTR left 1+, right 2+ Results Procedures completed during hospitalization: none Labs on day of discharge: Labs from last 24 hours 03/11/18 03/11/18 11:11 11:11 Thiamine 109 SILVANO Screen Neg - Impressions ITS Impressions Cervical Spine MRI 03/11/18 00:00 CONCLUSION: 1. No subluxation or definite acute fracture of the cervical spine. There is prominent endplate marrow edema towards the right at C5/C6 but I believe this is reactive. No discrete fracture line is demonstrated and perivertebral soft tissues are within normal limits.. 2. Multilevel cervical spine degenerative changes as detailed above. Lumbar Spine MRI 03/11/18 00:00 CONCLUSION: 1. No acute fracture or subluxation of the lumbar spine. 2. Chronic moderate to severe L3 compression deformity without associated foraminal or spinal stenosis. 3. Severe edema and loss of height of the L4/L5 intervertebral disc. There is irregularity and marrow edema of the adjacent vertebral body endplates. Discitis /osteomyelitis possible in the proper clinical setting. There is mild to moderate spinal stenosis and [id number] right, moderate left foraminal stenosis at this level. 4. Typical-appearing degenerative changes elsewhere. Mild bilateral foraminal stenosis at L2/L3 and L3/L4. 5. Scoliosis. Thoracic Spine MRI 03/11/18 00:00 CONCLUSION: 1. T8/T9 intervertebral disc has a small herniation into the adjacent inferior endplate of T8 which could be acute or subacute in age. 2. Mild scoliosis. 3. Otherwise negative MRI of the thoracic spine. Head CT 03/11/18 09:21 CONCLUSION: 1. The exam demonstrates small areas of decreased attenuation involving the brainstem and hailey most consistent with subacute areas of cortical infarct. 2. No acute intracranial hemorrhage identified. Report was called by [Dr. Kowalski to Dr. Aguila.at 9:45 ] Head CTA 03/11/18 09:27 CONCLUSION: 1. No large vessel occlusions. 2. Suspect more proximal right vertebral artery hemodynamically significant lesion. Report was called by Dr. Martinez to Dr. Mckeon at 0958 AM. Neck CTA 03/11/18 09:27 CONCLUSION: 1. Bilateral calcified carotid plaques without evidence of hemodynamically significant stenosis. 2. Dominant left vertebral artery. 3. No flow in the right vertebral artery. Thoracic Aorta CT 03/11/18 09:27 CONCLUSION: 1. No aortic aneurysm or dissection. 2. Focal moderate to severe stenosis of the left renal artery origin. 3. Moderate L3 compression deformity of unknown chronicity given lack of prior exams. However, suspect or chronic etiology given lack of prevertebral changes. Clinical correlation with spinous process tenderness is recommended. 4. Ancillary findings, as above. Chest X-Ray 03/11/18 09:29 CONCLUSION: 1. No acute abnormality. Head MRI 03/12/18 10:00 CONCLUSION: No acute intracranial findings. No significant interval change. Left temporal lobe encephalomalacia again seen. Discharge Plan - Discharge Disposition Patient Disposition: 03 Discharge to SNF - Discharge Condition Condition: Stable - Discharge Order Discharge Orders: Discharge Order (Routine); Ordered 03/13/18 Ordered By: Iam Tenorio - Discharge Details Anticipated Discharge Date: 03/11/18 - Physicians Team Primary Care Provider: UNKNOWN, Attending Provider: Artis Jung Other Providers: Howard Bustos MD ; [facility],Agency ; [facility]
== END 2018-03-13 17:44 ==
LOC: NEPC 09:18 → NEDH 19:15 → N03 21:10 → N05 03-12 17:46
PROVIDERS: ADMIT Family Medicine; ATTEND Family Medicine

== ENCOUNTER 2018-04-05 21:03 | Inpatient (IN) ==
[2018-04-05 21:34] LABS: Baso % (Auto) 0.4 % (0.0-2.0); Eos % (Auto) 0.1 % (0.0-4.0); Lymph # (Auto) 1.3 th/mm3 (1.0-4.8); Lymph % (Auto) 13.1 % (9.0-44.0); Mean Corpuscular HGB Conc 33.3 % (32.0-36.0); Mean Corpuscular Hemoglobin 30.1 pg (27.0-34.0); Mean Corpuscular Volume 90.5 fL (80.0-100.0); Mean Platelet Volume 8.1 fL (7.0-11.0); Mono # (Auto) 0.7 th/mm3 (0.0-0.9); Mono % (Auto) 7.2 % (0.0-8.0); Neut # (Auto) 8.1 th/mm3 (1.8-7.7); Neut % (Auto) 79.2 % (16.0-70.0); Platelet Count 206 th/mm3 (150-450); Red Blood Count 5.31 mil/mm3 (4.50-5.90); Red Cell Distribution Width 14.4 % (11.6-17.2); White Blood Count 10.2 th/mm3 (4.0-11.0)
[2018-04-05 22:01] LABS: Anion Gap 15 meq/L (5-15); Aspartate Aminotransferase 35 U/L (15-37); Blood Urea Nitrogen 18 mg/dL (7-18); Carbon Dioxide 19.3 meq/L (21.0-32.0); Chloride 109 meq/L (98-107); Glomerular Filtration Rate 59 mL/min (>89); Glucose,Random 94 mg/dL (74-106); Potassium 3.2 meq/L (3.5-5.1); Sodium 143 meq/L (136-145)
[2018-04-05 22:12] LABS: Alanine Aminotransferase 35 U/L (12-78); Alkaline Phosphatase 138 U/L (45-117); Thyroid Stimulating Hormone 0.738 uIU/mL (0.358-3.740); Total Protein 8.1 g/dL (6.4-8.2)
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
[2018-04-05 23:47] LABS: Bilirubin,Urine Negative (Negative); Clarity,Urine Hazy (Clear); Color,Urine Amber (Yellw/Straw); Glucose,Urine (UA) Negative (Negative); Hyaline Casts,Urine 116 /lpf (0-3); Leukocyte Esterase,Urine Negative (Negative); Mucus,Urine Many /lpf (Occasional); Nitrite,Urine Negative (Negative); Specific Gravity,Urine 1.026 (1.002-1.035); Squamous Epithelial Cell,Urine 1 /hpf (0-5)
[2018-04-06] MEDS ORDERED: oxyCODONE/Acetaminophen 10/325 Tablet PO ONE (03:19)
[2018-04-06] MEDS ORDERED: Aluminum/Magnesium/Simethacone Susp 30 ML UDC PO PRN (09:06)
[2018-04-06] MEDS ORDERED: Bisacodyl 10 MG Supp RECTAL PRN (09:06)
[2018-04-06] MEDS ORDERED: LORazepam 1 MG Tablet PO PRN (10:42)
[2018-04-06] MEDS ORDERED: Haloperidol Inj 5 MG/ML Ampul IV.PUSH PRN (10:42)
[2018-04-06] MEDS: oxyCODONE/Acetaminophen 10/325 Tablet PO SCH ×2 (10:54→17:32)
[2018-04-06] MEDS: dilTIAZem CD 240 MG Capsule PO SCH (10:54)
[2018-04-06] MEDS: LORazepam 1 MG Tablet PO SCH ×3 (10:55→17:31)
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
[2018-04-06] MEDS ORDERED: Metoprolol Tartrate 25 MG Tablet PO ONE (12:30)
[2018-04-06] MEDS ORDERED: dilTIAZem Inj 125 MG in Sodium Chlor 0.9% Inj 100 ML IV.CONT PRN (13:00)
[2018-04-06] MEDS ORDERED: LORazepam 1 MG Tablet PO SCH (13:00)
--- NOTE | 2018-04-06 13:25 | P.CON ---
History of Present Illness Service: Hospitalist Consult date: 04/06/18 Requesting Physician: Michael Moore Reason for Consult: Assist with medical management Primary Care Provider: UNKNOWN Chief Complaint: Suicical ideation, severe low back pain History of Present Illness: This is a 67-year-old male with a past medical history significant for chronic back pain, degenerative disc disease lumbar spine, history of compression fractures, atrial fibrillation on chronic anticoagulation with Xarelto, history of previous KS, history of previous CVA with residual left-sided weakness and depression who presents to [facility] ED under Porter act after trying to commit suicide by cutting his own neck. Patient has been admitted to inpatient psychiatric unit and hospitalist services have been consulted to assist with medical management. Patient seen and examined. Patient tells me today that he is in town on vacation from [place] residing in various hotels. He says that he is going to be down here for a few more weeks. He says he has no family or friends in the area. When asked why he chose to vacation in [facility] he says he just "picked a place on the map". He says that he has been extremely depressed at his current situation that includes the loss of his son via motorcycle accident, his estrangement from his living son and his chronic back pain. He says that he no longer wants to live and that no one cares for him. He tells me that he fell into a dresser just prior to being brought in to the ED and is having severe excruciating back and left hip pain that is not controlled with oxycodone. He is asking for methadone. Patient states he is very compliant with his home medications. Per review of the H&P from the admitting psychiatrist, patient currently in [place]. Patient specifically stated that he does not drink however according to the EMR patient has a history of alcohol abuse and told psychiatrist he last drank 2 days ago. In the ED, patient is noted to have uncontrolled blood pressure 170/111. His heart rate ranges between 110-130s. Patient was admitted to [place] a month ago with slurred speech and left-sided weakness. He was seen in consultation by neurology. His workup was essentially negative and there was concern for possible malingering. Patient had an MRI of his lumbar spine at that time which revealed compression fracture at L3 and disc space irregularity at L4-5 that could possibly indicate discitis/ osteomyelitis in the proper setting. Patient was seen in consultation by neurosurgery who did not feel that surgical intervention was warranted and recommended use of lumbar orthosis. Review of Systems All other systems reviewed negative except as stated in [facility] - History History Provided By: Patient, Medical Record, Law Enforcement - Medical History Medical History: Medical History (Last Updated 04/06/18 @ 12:39 by Mehnaz Ding) Cerebrovascular accident (CVA) with involvement of left side of body Chronic back pain Compression fracture of L3 lumbar vertebra Lumbar degenerative disc disease Osteoporosis Afib CAD (coronary artery disease) HTN (hypertension) High cholesterol - Surgical History Surgical History: Surgical History (Last Reviewed 04/06/18 @ 12:38 by Mehnaz Ding) Hx of shoulder surgery - Family History Family History: Family History (Last Updated 04/06/18 @ 12:39 by Mehnaz Ding) Other CVA (cerebral vascular accident) Heart disease - Social History I have reviewed the patient's Social History: Yes - Tobacco History Second Hand Smoke Exposure: No Smoking Status: Never smoker - Alcohol History How Often Do You Have a Drink Containing Alcohol: Never - Substance Use History Substance History: No History of Abuse - Travel History Recent Travel in the [place] Within the Last 8 Weeks: No Recent Travel Out of the Country Within the Last 8 Weeks: No - Immunization History Tetanus Immunization: Unable to Assess Medications and Allergies Active Medications: Active Medications Al Hydrox/Mg Hydrox/Simethicone (Mag-Al Plus Susp Liq) 30 ml PO Q6H PRN PRN Reason: DYSPEPSIA Al Hydroxide/Mg Hydroxide (Milk Of Magnesia Liq) 30 ml PO Q12H PRN PRN Reason: Mild Constipation Atorvastatin Calcium (Lipitor) 40 mg PO DAILY [facility] Last Admin: 04/06/18 10:03 Dose: Not Given Bisacodyl (Dulcolax Supp) 10 mg RECTAL DAILY PRN PRN Reason: SEVERE CONSITIPATION Diltiazem HCl (Cardizem Cd 24hr) 240 mg PO DAILY [facility] Last Admin: 04/06/18 10:54 Dose: 240 mg Duloxetine HCl (Cymbalta) 20 mg PO DAILY [facility] Flumazenil (Romazecon Inj) 0.2 mg IV.PUSH Q1M PRN PRN Reason: OVERSEDATION Haloperidol Lactate (Haldol Inj) 1 mg IV.PUSH Q15M PRN PRN Reason: for severe agitation Diltiazem HCl 125 mg/ Sodium (Chloride) 125 mls @ 5 mls/hr IV.CONT TITRATE PRN ; Protocol PRN Reason: Per Protocol Lactulose (Lactulose Liq) 30 ml PO DAILY PRN PRN Reason: SEVERE CONSITIPATION Lorazepam (Ativan) 1 mg PO TID [facility] Last Admin: 04/06/18 10:55 Dose: 1 mg Lorazepam (Ativan) 1 mg PO Q4H PRN PRN Reason: for CIWA 8-10 Lorazepam (Ativan Inj) 2 mg IV.PUSH Q2H PRN PRN Reason: for CIWA 11-14 Lorazepam (Ativan Inj) 2 mg IV.PUSH Q1H PRN PRN Reason: for CIWA 15-20 Lorazepam (Ativan Inj) 2 mg IV.PUSH Q15M PRN PRN Reason: for CIWA > 20 Lorazepam (Ativan Inj) 1 mg IV.PUSH Q4H PRN PRN Reason: for CIWA 8-10 Lorazepam (Ativan) 2 mg PO Q2H PRN PRN Reason: for CIWA 11-14 Ondansetron HCl (Zofran Inj) 4 mg IV.PUSH Q6H PRN PRN Reason: NAUSEA OR VOMITING Oxycodone/Acetaminophen (Percocet 10/325 Mg) 1 tab PO Q6H [facility] Last Admin: 04/06/18 10:54 Dose: 1 tab Rivaroxaban (Xarelto) 20 mg PO BID [facility] Senna/Docusate Sodium (Gabby-Colace) 1 tab PO BID [facility] Sennosides (Senokot) 17.2 mg PO Q12H PRN PRN Reason: Moderate Constipation Sodium Chloride (Ns Flush) 2 ml IV.FLUSH BID [facility] Sodium Chloride (Ns Flush) 2 ml IV.FLUSH PRN PRN PRN Reason: FLUSH AFTER USING IV ACCESS Allergies Allergy/AdvReac Type Severity Reaction Status Date / Time No Known Allergies Allergy Verified 03/11/18 09:31 Home Medications Medication Instructions Recorded Confirmed Type lorazepam 1 mg PO TID 04/05/18 04/05/18 History oxycodone-acetaminophen 1 tab PO Q6H 04/05/18 04/05/18 History Physical Exam Vital signs: Vital Signs 04/05/18 21:10 04/05/18 21:28 04/05/18 22:17 Temperature 97.7 F Pulse Rate 128 H 110 H 122 H Respiratory Rate 18 18 18 Blood Pressure 174/113 H 180/118 H 148/84 H Pulse Oximetry 98 98 98 04/05/18 23:00 04/06/18 00:00 04/06/18 00:29 Temperature Pulse Rate 148 H 132 H 99 H Respiratory Rate 18 16 16 Blood Pressure 156/104 H 149/104 H 146/89 H Pulse Oximetry 98 99 98 04/06/18 01:30 04/06/18 02:30 04/06/18 03:37 Temperature Pulse Rate 102 H 104 H 114 H Respiratory Rate 16 18 18 Blood Pressure 143/92 H 156/105 H 180/88 H Pulse Oximetry 97 97 98 04/06/18 06:20 04/06/18 07:00 04/06/18 08:00 Temperature Pulse Rate 108 H 94 H 101 H Respiratory Rate 18 20 19 Blood Pressure 154/85 H 160/76 H 159/91 H Pulse Oximetry 98 04/06/18 09:00 04/06/18 09:10 Temperature Pulse Rate 112 H 106 H Respiratory Rate 19 Blood Pressure 167/83 H 167/83 H Pulse Oximetry 97 Intake & Output 04/05/18 04/06/18 04/06/18 18:59 06:59 18:59 Weight 81.647 kg Narrative: GENERAL: This is a well-developed well-nourished elderly male patient , in no acute distress. He is awake and alert. He is mildly tremulous. + Slight left sided facial droop. SKIN: Warm and dry. +Small superficial laceration on the left side of his neck. +Scattered ecchymoses on the left leg over the knee, whiteside and foot. HEAD: Atraumatic. Normocephalic. EYES: Pupils equal and round. No scleral icterus. No injection or drainage. ENT: No nasal bleeding or discharge. Mucous membranes pink and moist. NECK: Trachea midline. CARDIOVASCULAR: Irregular. No murmur auscultated. RESPIRATORY: No accessory muscle use. Clear to auscultation. Breath sounds equal bilaterally. GASTROINTESTINAL: Abdomen soft, nondistended. +mild diffuse tenderness to palpation. +BS. MUSCULOSKELETAL: Extremities without clubbing, cyanosis, or edema. No obvious deformities. ROM not tested of lumbar spine. NEUROLOGICAL: Awake and alert. No obvious cranial nerve deficits. +Bilateral SLR. Motor function appears intact in the right lower extremity. Patient is unable to lift left leg up off the bed secondary to pain. He is unable to dorsi or plantarflex the foot. Normal speech. PSYCHIATRIC: Upset, tearful. Judgement and insight poor. Results - Labs CBC & Chem 7: 04/05/18 21:25 04/05/18 21:25 Labs: Laboratory Results - last 24 hr 04/05/18 04/05/18 04/05/18 21:25 21:25 23:32 WBC 10.2 RBC 5.31 Hgb 16.0 Hct 48.0 MCV 90.5 MCH 30.1 MCHC 33.3 RDW 14.4 Plt Count 206 D MPV 8.1 Neut % (Auto) 79.2 H Lymph % (Auto) 13.1 [place] % (Auto) 7.2 Eos % (Auto) 0.1 Baso % (Auto) 0.4 Neut # (Auto) 8.1 H Lymph # (Auto) 1.3 [place] # (Auto) 0.7 Eos # (Auto) 0.0 Baso # (Auto) 0.0 WBC Differential . Differential Comment Auto diff final Sodium 143 Potassium 3.2 L Chloride 109 H Carbon Dioxide 19.3 L Anion Gap 15 BUN 18 Creatinine 1.21 Estimated GFR 59 L Random Glucose 94 Calcium 9.0 Total Bilirubin 0.4 AST 35 ALT 35 Alkaline Phosphatase 138 H Total Protein 8.1 Albumin 4.0 TSH 0.738 Urine Color [place] Urine Clarity Hazy H Urine pH 5.0 Ur Specific [place] 1.026 Urine Protein 100 H Urine Glucose (UA) Negative Urine Ketones Negative Urine Occult Blood Small H Urine Nitrate Negative Urine Bilirubin Negative Urine Urobilinogen Less than 2 Ur Leukocyte Esterase Negative Urine RBC 1 Urine WBC 1 Ur Squamous Epith Cells 1 Hyaline Casts 116 Granular Casts 11 Urine Mucus Many H Micro UA Comment Culture not ind Ur Microscopic Review Not Reportable Urine Culture Comments Culture not ind Assessment and Plan - Plan 67-year-old male with a past medical history significant for chronic back pain, degenerative disc disease lumbar spine, history of compression fractures, atrial fibrillation on chronic anticoagulation with Xarelto, history of previous KS, history of previous CVA with residual left-sided weakness and depression who presents to [facility] ED under Porter act after trying to commit suicide by cutting his own neck. Patient has been admitted to inpatient psychiatric unit and hospitalist services have been consulted to assist with medical management. Depression Suicidal ideation -Management per psychiatry Afib with RVR CAD with hx of KS in the past on chronic anticoagulation with Xarelto HR running in 130s Suspect patient is noncompliant with his home medication regimen patient has no cardiac complaints at this time -Discussed with Dr. Moore who is in agreement patient would be better managed at this time on the medical floor with telemetry -give Cardizem 15mg IV push now and start on Cardizem gtt per protocol -continuous cardiac monitoring -Continue Xarelto Hypertension, uncontrolled, secondary to medication noncompliance -treatment as above -Continue to monitor BP and adjust treatment accordingly Acute on chronic low back pain s/p fall into dresser just prior to coming into the ED Left hip pain s/p fall DDD lumbar spine Hx of previous compression fracture L3 Suspected osteoporosis MR L spine 03/22 + multiple level degenerative changes, chronic moderate to severe L3 compression deformity, severe edema with loss of height at L4-5 with disc irregularity and marrow edema possibly suggestive of discitis/ osteomyelitis in the proper clinical setting, mild to moderate spinal stenosis and mild to moderate right, moderate left foraminal stenosis at this level. -patient complaining of severe low back and left hip pain with weakness in the left leg and inability to urinate. -obtain XR left hip and lumbar spine for further evaluation -Patient was seen in consultation by Dr. Llanes last month and recommended lumbar orthosis -Pain medication with bowel regimen. Patient requesting Methadone specifically. -consider possibility of malingering - patient ?Urinary retention ?neurogenic bladder concern for possible malingering. Patient reported acute urinary retention when admitted 1 month ago. UA unremarkable -place guzman catheter and monitor UOP -start on Flomax -plan for voiding trial in next 1-2 days Dyslipidemia -Continue patient on home dose of atorvastatin Hx of CVA with left sided weakness Patient ambulates with a walker at baseline -PT/OT eval/tx -monitor Hx of alcohol abuse disorder -CIWA protocol in place -monitor for e/o withdrawal -thiamine/folate/MVI daily Hypokalemia K 3.2 -po repletion ordered in the ED -repeat BMP in am DVT prophylaxis -Resume patient's home Xarelto Code Status: Full Discussed Condition With: patient, nursing staff, Dr. Moore, Dr. Rogers
--- NOTE | 2018-04-06 14:13 | XR ---
EXAM DATE: 04/06/2018 2:05 PM EST AGE/SEX: 67 years / Male INDICATIONS: Left hip pain, fall. CLINICAL DATA: This is the patient's initial encounter. Patient reports that signs and symptoms have been present for 1 day and indicates a pain score of 8/10. MEDICAL/SURGICAL HISTORY: None. None. COMPARISON: No prior exams available for comparison. FINDINGS: Bony structures are intact and in normal alignment. Joints are intact without dislocation or signifi cant arthropathy. Osseous density is normal. Soft tissues are unremarkable. No radiopaque foreign bodies seen. CONCLUSION: No acute fracture or joint dislocation. Electronically signed by: Tom Heaton MD 04/06/2018 2:12 PM EST
--- NOTE | 2018-04-06 14:13 | XR ---
EXAM DATE: 04/06/2018 1:59 PM EST AGE/SEX: 67 years / Male INDICATIONS: Lower back pain, fall. CLINICAL DATA: This is the patient's initial encounter. Patient reports that signs and symptoms have been present for 3 days and indicates a pain score of 10/10. MEDICAL/SURGICAL HISTORY: None. None. COMPARISON: [facility], MR LUMBAR SPINE W/O CONTRAST, 03/11/2018. . FINDINGS: There is chronic compression deformity involving L3. There are degenerative changes noted throughout the entire lumbar spine. There is disc degeneration with disc space narrowing from L2 through L5. The re is curvature of the lumbar spine to the left. There is good alignment of the SI joints. No definit e new compression fracture injuries are demonstrated. No significant change compared to the prior MRI . CONCLUSION: 1. Old compression fracture injury of L3. 2. Moderate diffuse primary bony degenerative changes, disc degeneration disc space narrowing involv ing the mid to lower lumbar spine. There is mild curvature to the left. Electronically signed by: Tom Heaton MD 04/06/2018 2:11 PM EST
[2018-04-06] MEDS ORDERED: Acetaminophen 325 MG Tablet PO PRN (14:24)
[2018-04-06] MEDS: Morphine Inj 4 MG/ML Vial IV.PUSH PRN (15:01)
[2018-04-06] MEDS ORDERED: oxyCODONE/Acetaminophen 10/325 Tablet PO SCH (17:30)
--- NOTE | 2018-04-06 20:09 | ECG ---
Date Performed: 04/06/2018 Time Performed: 00:13:53 PTAGE: 67 years EKG: ATRIAL FIBRILLATION WITH RAPID VENTRICULAR RESPONSE MARKED LEFT AXIS DEVIATION ABNORMAL ECG PREVIOUS TRACING : 03/11/2018 09.24 Since the previous tracing, no significant change noted DOCTOR: Guerline Rosenberg Interpretating Date/Time 04/06/2018 20:02:18
[2018-04-06] MEDS: Senna/Docusate Sodium 8.6/50 MG Tablet PO SCH (20:39)
[2018-04-06] MEDS ORDERED: Senna/Docusate Sodium 8.6/50 MG Tablet PO SCH (21:00)
[2018-04-06] MEDS ORDERED: Rivaroxaban 20 MG Tablet PO SCH (21:00)
[2018-04-06] MEDS: oxyCODONE/Acetaminophen 10/325 Tablet PO PRN (23:15)
[2018-04-07] MEDS: oxyCODONE/Acetaminophen 10/325 Tablet PO PRN ×3 (03:36→16:15)
[2018-04-07] MEDS: Senna/Docusate Sodium 8.6/50 MG Tablet PO SCH ×2 (08:11→21:05)
[2018-04-07] MEDS: dilTIAZem CD 240 MG Capsule PO SCH (08:11)
[2018-04-07] MEDS: Folic Acid 1 MG Tablet PO SCH (08:11)
[2018-04-07] MEDS: Rivaroxaban 20 MG Tablet PO SCH (08:11)
[2018-04-07] MEDS: LORazepam 1 MG Tablet PO SCH ×3 (08:12→19:07)
[2018-04-07 08:32] LABS: Calcium 8.3 mg/dL (8.5-10.1); Carbon Dioxide 29.7 meq/L (21.0-32.0); Potassium 3.4 meq/L (3.5-5.1)
[2018-04-07 08:34] LABS: Chol/HDL Ratio 2.33 Ratio; HDL Cholesterol 38.5 mg/dL (40.0-60.0)
[2018-04-07] MEDS ORDERED: Morphine Sulfate Inj 2 MG/ML Vial IV.PUSH ONE (11:49)
--- NOTE | 2018-04-07 14:21 | P.PNPSY ---
Subjective Remarks: The patient was seen today for psychiatric reevaluation. Case discussed with primary medical team. On my psychiatric evaluation patient continues to be irritable, a little bit verbally hostile, but redirectable. The patient is quite focus in pain medications, and stating that he needs to be treated better for his pain. He says that he does not want to be in Percocet, "that medication does not work to me", he prefers to be in morphine. He reports that his depression is directly related with his pain. He mentions his suicidal thoughts, but today he denies suicidal intentions. At some point the patient becomes quite conditioned, stating that if he does not get "appropriate medications" he might harm himself. He is fully oriented x3. He also reports difficulty sleeping at night and anxiety during the day. No agitation, no aggressive behavior present. Mental Status Examination Appearance: Disheveled Consciousness: Alert Orientation: x4 Motor Activity: Normal gait Speech: Unremarkable Language: Adequate Fund of Knowledge: Adequate Attention and Concentration: Adequate Memory: Unremarkable Mood: Oppositional, Irritable Affect: Irritable Thought Process & Associations: Intact Thought Content: Appropriate Hallucination Type: None Delusion Type: None Suicidal Ideation: Yes Suicidal Plan: No Suicidal Intention: No Homicidal Ideation: No Homicidal Plan: No Homicidal Intention: No Insight: Poor Judgment: Poor Assessment and Plan - Assessment (1) Major depress dis, severe Code(s): F32.2 - Major depressive disorder, single episode, severe without psychotic features Status: Acute (2) Alcohol withdrawal Code(s): F10.239 - Alcohol dependence with withdrawal, unspecified Status: Acute (3) Opiate withdrawal Code(s): F11.23 - Opioid dependence with withdrawal Status: Acute - Plan Plan: On psychiatric evaluation today the patient is irritable, demanding, manipulative, with evident drug-seeking behavior. Continues to endorse suicidal ideation, no plan. Also reports difficulty sleeping and anxiety. We will increase the Cymbalta to 30 mg daily. Might consider gabapentin 300 mg 3 times daily for pain and also for anxiety. Continue for psychiatric admission. Justification for Continued Inpatient Stay: To be admitted in psychiatry
[2018-04-07 15:40] LABS: Hemoglobin A1c 5.5 % (4.3-6.0)
--- NOTE | 2018-04-07 17:18 | P.PN ---
Subjective Interval history: Patient is seen lying in bed. He is very focused on getting additional pain medications. Initially tells me that he was managed on methadone at a clinic in [place] prior to coming here; eventually tells me that he has not been on methadone in some time and that it was only for a very short while. He says has not been seen by pain management while in [place] however [facility]se shows several prescriptions for narcotics given in 03/2018. His story is inconsistent ; significant concern for drug-seeking behavior. He denies any chest pain or shortness of breath. No fever or chills. Has not had any dizziness or syncope but he has not tried to get out of bed. He does report intermittent palpitations that he says have been going on for over a month. Physical Exam Vital signs: Vital Signs 04/06/18 20:00 04/07/18 00:00 04/07/18 04:00 Temperature 97.6 F 98.5 F 98.0 F Pulse Rate 89 80 78 Respiratory Rate 19 12 12 Blood Pressure 150/99 H 130/76 128/82 Pulse Oximetry 99 96 97 04/07/18 08:00 04/07/18 12:00 04/07/18 16:07 Temperature 97.6 F 97.6 F 98.1 F Pulse Rate 74 93 H 93 H Respiratory Rate 16 18 16 Blood Pressure 133/72 137/83 148/91 H Pulse Oximetry 96 96 97 Intake & Output 04/06/18 04/07/18 04/07/18 18:59 06:59 18:59 Output Total 400 / 400 Balance -400 / -400 Weight 81.647 kg Output: Urine 400 / 400 Other: Date of Last Bowel Movement 04/05/18 Weight On Admission 81.647 kg Narrative: GENERAL: This is a well-developed well-nourished elderly male patient , in no acute distress.+Slight left sided facial droop. SKIN: Warm and dry. +Small superficial laceration on the left side of his neck. +Scattered ecchymoses on the left leg over the knee, whiteside and foot in various stages of healing. HEAD: Atraumatic. Normocephalic. EYES: Pupils equal and round. No scleral icterus. No injection or drainage. CARDIOVASCULAR: Irregular. No murmur auscultated. RESPIRATORY: No accessory muscle use. Clear to auscultation. Breath sounds equal bilaterally. GASTROINTESTINAL: Abdomen soft, nondistended and non tender. +BS. MUSCULOSKELETAL: Extremities without clubbing, cyanosis, or edema. No obvious deformities. ROM not tested of lumbar spine. NEUROLOGICAL: Awake and alert. No obvious cranial nerve deficits. Patient refuses motor function evaluation of lower limbs due to back pain. normal speech. PSYCHIATRIC: Anxious judgement and insight poor. Results - Labs CBC & Chem 7: 04/05/18 21:25 04/07/18 06:19 Laboratory Results - last 24 hr 04/07/18 04/07/18 06:19 06:19 Sodium 139 Potassium 3.4 L Chloride 103 Carbon Dioxide 29.7 D Anion Gap 6 BUN 27 H Creatinine 0.93 Estimated GFR 81 L Random Glucose 84 Hemoglobin A1c 5.5 Calcium 8.3 L Triglycerides 81 Cholesterol 90 L LDL Cholesterol, Calc 35 HDL Cholesterol 38.5 L Cholesterol/HDL Ratio 2.33 Assessment and Plan - Plan 67-year-old male with a past medical history significant for chronic back pain, degenerative disc disease lumbar spine, history of compression fractures, atrial fibrillation on chronic anticoagulation with Xarelto, history of previous [place], history of previous CVA with residual left-sided weakness and depression who presents to [facility] ED under Porter act after trying to commit suicide by cutting his own neck. Patient has been admitted to inpatient psychiatric unit and hospitalist services have been consulted to assist with medical management. Depression Suicidal ideation -Management per psychiatry Afib with RVR CAD with hx of WI in the past on chronic anticoagulation with Xarelto HR running in 130s Suspect patient is noncompliant with his home medication regimen patient has no cardiac complaints at this time -Discussed with Dr. Moore who is in agreement patient would be better managed at this time on the medical floor with telemetry -give Cardizem 15mg IV push now; now on p.o. -continuous cardiac monitoring -Continue Xarelto Hypertension, uncontrolled, secondary to medication noncompliance -treatment as above -Continue to monitor BP and adjust treatment accordingly Acute on chronic low back pain s/p fall into dresser just prior to coming into the ED Left hip pain s/p fall DDD lumbar spine Hx of previous compression fracture L3 Suspected osteoporosis MR L spine 03/22 + multiple level degenerative changes, chronic moderate to severe L3 compression deformity, severe edema with loss of height at L4-5 with disc irregularity and marrow edema possibly suggestive of discitis/ osteomyelitis in the proper clinical setting, mild to moderate spinal stenosis and mild to moderate right, moderate left foraminal stenosis at this level. -patient complaining of severe low back and left hip pain with weakness in the left leg and inability to urinate. -obtain XR left hip and lumbar spine for further evaluation - no acute injury seen -Patient was seen in consultation by Dr. Llanes last month and recommended lumbar orthosis -Pain medication with bowel regimen. Patient requesting Methadone specifically; was not previously on scheduled methadone. -consider possibility of malingering/drug-seeking ?Urinary retention ?neurogenic bladder concern for possible malingering. Patient reported acute urinary retention when admitted 1 month ago. UA unremarkable -place guzman catheter and monitor UOP -start on Flomax -plan for voiding trial in next 1-2 days Dyslipidemia -Continue patient on home dose of atorvastatin Hx of CVA with left sided weakness Patient ambulates with a walker at baseline -PT/OT eval/tx -monitor Hx of alcohol abuse disorder -CIWA protocol in place -monitor for e/o withdrawal -thiamine/folate/MVI daily Hypokalemia -Replete as indicated and monitor DVT prophylaxis -Resume patient's home Xarelto Code Status: Full
[2018-04-07] MEDS: Morphine Inj 4 MG/ML Vial IV.PUSH PRN (21:32)
[2018-04-08] MEDS: Senna/Docusate Sodium 8.6/50 MG Tablet PO SCH (09:16)
[2018-04-08] MEDS: LORazepam 1 MG Tablet PO SCH ×2 (09:17→12:48)
[2018-04-08] MEDS: dilTIAZem CD 240 MG Capsule PO SCH (09:17)
[2018-04-08] MEDS: Folic Acid 1 MG Tablet PO SCH (09:17)
[2018-04-08] MEDS: Rivaroxaban 20 MG Tablet PO SCH (09:21)
[2018-04-08] MEDS: Morphine Inj 4 MG/ML Vial IV.PUSH PRN ×2 (09:21→13:30)
--- NOTE | 2018-04-08 14:05 | P.PNIM ---
Subjective Interval history: Patient seen lying in bed. He continues to be drug-seeking. Now tells me that he has no suicidal intention that he just wants to get out of here and go back home. Has no new complaints. Nursing reports no adverse events overnight other than drug-seeking. Patient was evaluated by physical therapy today and he was significantly improved from previous eval. Now able to move without significant noticeable pain. Physical Exam Vital signs: Last Vital Signs Temp 98.6 F 04/08/18 12:02 Pulse 113 H 04/08/18 12:02 Resp 20 04/08/18 12:02 BP 142/86 H 04/08/18 12:02 Pulse Ox 95 04/08/18 12:02 Intake & Output 04/06/18 04/07/18 04/08/18 04/09/18 06:59 06:59 06:59 06:59 Output Total 400 / 400 150 / 150 Balance -400 / -400 -150 / -150 Weight 81.647 kg 81.647 kg Narrative: GENERAL: This is a well-developed well-nourished elderly male patient, in no acute distress. SKIN: Warm and dry. +Small superficial laceration on the left side of his neck. +Scattered ecchymoses on the left leg over the knee, whiteside and foot in various stages of healing. HEAD: Atraumatic. Normocephalic. EYES: Pupils equal and round. No scleral icterus. No injection or drainage. CARDIOVASCULAR: Irregular. No murmur auscultated. RESPIRATORY: No accessory muscle use. Clear to auscultation. Breath sounds equal bilaterally. GASTROINTESTINAL: Abdomen soft, nondistended and non tender. +BS. MUSCULOSKELETAL: Extremities without clubbing, cyanosis, or edema. No obvious deformities. ROM not tested of lumbar spine. NEUROLOGICAL: Awake and alert. No obvious cranial nerve deficits. Normal movements of all limbs. normal speech. PSYCHIATRIC: Anxious; judgement and insight poor. Results Labs CBC & Chem 7: 04/05/18 21:25 04/07/18 06:19 Assessment and Plan Plan 67-year-old male with a past medical history significant for chronic back pain, degenerative disc disease lumbar spine, history of compression fractures, atrial fibrillation on chronic anticoagulation with Xarelto, history of previous OR, history of previous CVA with residual left-sided weakness and depression who presents to [facility] ED under Porter act after trying to commit suicide by cutting his own neck. Patient has been admitted to inpatient psychiatric unit and hospitalist services have been consulted to assist with medical management. Depression Suicidal ideation -Management per psychiatry Afib with RVR; CAD with hx of OR in the past on chronic anticoagulation with Xarelto -noncompliant with his home medication regimen -patient has no cardiac complaints at this time -bolused Cardizem 15mg IV at admit; now on p.o. -continuous cardiac monitoring; heart rate intermittently irregular but no significant episodes of A. fib. -Continue Xarelto Hypertension, uncontrolled, secondary to medication noncompliance -treatment as above; stable Acute on chronic low back pain ; s/p fall into dresser just prior to coming into the ED -patient initially complaining of severe low back and left hip pain with weakness in the left leg; appears to have resolved. -no acute injury seen on imaging -Patient was seen in consultation by Dr. Llanes last month and recommended lumbar orthosis -Pain medication with bowel regimen. Patient requesting Methadone specifically ; was not previously on scheduled methadone. -consider possibility of malingering/drug-seeking; wean as soon as possible. Will discharge on gabapentin and no narcotics. ?Urinary retention ?neurogenic bladder concern for possible malingering. Patient reported acute urinary retention when admitted 1 month ago. UA unremarkable -DC Bedoya and monitor voiding -start on Flomax Hx of CVA with left sided weakness Patient ambulates with a walker at baseline -PT/OT eval/tx -monitor Hx of alcohol abuse disorder -[facility] protocol in place -monitor for e/o withdrawal -thiamine/folate/MVI daily Hypokalemia; resolved -Replete as indicated and monitor DVT prophylaxis -Resume patient's home Xarelto Code Status: Full Progress Note: Quality VTE Deep Vein Thrombosis/Pulmonary Embolism Present on Admission: No
--- NOTE | 2018-04-08 14:15 | P.DS ---
DS: Providers Date of admission: 04/06/18 10:01 Primary care physician: UNKNOWN Consults: 04/06/18 10:29 Consult to Hospitalist Routine Consulting Provider: Reji Rogers Reason for Consultation: Nausea, Vomits, severe back pain and Tachycardia, Afib Notified:: Service Spoke with:: KARSON Date Notified:: 04/06/18 Time Notified:: 10:36 Comments:: Ordering Provider: CARLOS 04/06/18 10:59 Consult to Psychiatry Routine Consulting Provider: Allan Saavedra Reason for Consultation: second opinion Notified:: Office Date Notified:: 04/06/18 Time Notified:: 11:01 Ordering Provider: CARLOS 04/06/18 12:27 Consult to Psychiatry Routine Consulting Provider: Michael Moore [employer] Registrar:: Michael Moore Patient known to:: Michael Moore Reason for Consultation: Depression (admitted with A-fib RVR) - seen previously Ordering Provider: JENNIFER 04/07/18 08:15 HUB Only Consult Order Routine Consulting Provider: [facility],Insurance DS: Summary 67-year-old male with a past medical history significant for chronic back pain, degenerative disc disease lumbar spine, history of compression fractures, atrial fibrillation on chronic anticoagulation with Xarelto, history of previous LA, history of previous CVA with residual left-sided weakness and depression who presents to [facility] ED under Porter act after trying to commit suicide by cutting his own neck. Patient was admitted to psych with hospitalist manage treatment of medical conditions. A. fib and pain have stabilized and patient is now medically cleared discharge to inpatient psychiatric unit. Depression Suicidal ideation -Management per psychiatry h/o Afib with RVR; CAD with hx of LA in the past on chronic anticoagulation with Xarelto -noncompliant with his home medication regimen -patient has no cardiac complaints at this time -bolused Cardizem 15mg IV at admit; now on p.o. -continuous cardiac monitoring; heart rate intermittently irregular but no significant episodes of A. fib. -Continue Xarelto Hypertension, uncontrolled, secondary to medication noncompliance -treatment as above; stable Acute on chronic low back pain ; s/p fall into dresser just prior to coming into the ED -patient initially complaining of severe low back and left hip pain with weakness in the left leg; appears to have resolved. -no acute injury seen on imaging -Patient was seen in consultation by Dr. Llanes last month and recommended lumbar orthosis -Pain medication with bowel regimen. Patient requesting Methadone specifically ; was not previously on scheduled methadone. -consider possibility of malingering/drug-seeking; wean as soon as possible. Will discharge on gabapentin and no narcotics. ?Urinary retention ?neurogenic bladder concern for possible malingering. Patient reported acute urinary retention when admitted 1 month ago. UA unremarkable -DC Bedoya and monitor voiding -start on Flomax Hx of CVA with left sided weakness Patient ambulates with a walker at baseline -PT/OT eval/tx -monitor Hx of alcohol abuse disorder -[facility] protocol in place -monitor for e/o withdrawal -thiamine/folate/MVI daily Hypokalemia; resolved -Replete as indicated and monitor Time Spent with Patient Total time spent providing and/or coordinating discharge services: Quality: VTE Deep Vein Thrombosis/Pulmonary Embolism Present on Admission: No Exam Narrative Exam Narrative: GENERAL: This is a well-developed well-nourished elderly male patient, in no acute distress. SKIN: Warm and dry. +Small superficial laceration on the left side of his neck. +Scattered ecchymoses on the left leg over the knee, whiteside and foot in various stages of healing. HEAD: Atraumatic. Normocephalic. EYES: Pupils equal and round. No scleral icterus. No injection or drainage. CARDIOVASCULAR: Irregular. No murmur auscultated. RESPIRATORY: No accessory muscle use. Clear to auscultation. Breath sounds equal bilaterally. GASTROINTESTINAL: Abdomen soft, nondistended and non tender. +BS. MUSCULOSKELETAL: Extremities without clubbing, cyanosis, or edema. No obvious deformities. ROM not tested of lumbar spine. NEUROLOGICAL: Awake and alert. No obvious cranial nerve deficits. Normal movements of all limbs. normal speech. PSYCHIATRIC: Anxious; judgement and insight poor. Results Labs on day of discharge: Labs from last 24 hours 04/07/18 06:19 Hemoglobin A1c 5.5 Impressions ITS Impressions Hip X-Ray 04/06/18 00:00 CONCLUSION: No acute fracture or joint dislocation. Lumbar Spine X-Ray 04/06/18 00:00 CONCLUSION: 1. Old compression fracture injury of L3. 2. Moderate diffuse primary bony degenerative changes, disc degeneration disc space narrowing involving the mid to lower lumbar spine. There is mild curvature to the left. Discharge Plan Discharge Disposition Patient Disposition: 63 Disc To [facility] Discharge Condition Condition: Stable Discharge Order Discharge Orders: Discharge Order (Routine); Ordered 04/08/18 Ordered By: Sarah Pretty Discharge Details Anticipated Discharge Date: 04/08/18 Physicians Team Primary Care Provider: UNKNOWN, Attending Provider: Benjamín Dumont Other Providers: Allan Saavedra ; Michael Moore ; [employer], Insurance Rxs /Orders / Referrals /Forms Prescriptions: New folic acid 1 mg Tablet 1 mg PO DAILY Qty: 30 RF: 0 multivitamin with folic acid [Thera] 400 mcg Tablet 1 tab PO DAILY Qty: 30 RF: 0 thiamine HCl (vitamin B1) 100 mg Tablet 100 mg PO BID Qty: 30 RF: 0 acetaminophen 325 mg Tablet 325 mg PO Q6H PRN (Reason: Headache) Qty: 30 RF: 0 duloxetine 30 mg Capsule,Delayed Release(Dr/Ec) 30 mg PO DAILY Qty: 30 RF: 0 gabapentin 300 mg capsule 300 mg PO TID Qty: 90 RF: 0 Continue atorvastatin 40 mg Tablet 40 mg PO DAILY 30 Days Qty: 30 RF: 0 sennosides-docusate sodium [Senna Plus] 8.6-50 mg Tablet 1 tab PO BID 30 Days Qty: 60 RF: 0 rivaroxaban [Xarelto] 20 mg Tablet 20 mg PO BID 30 Days Qty: 60 RF: 0 diltiazem HCl 240 mg Capsule,Extended Release 24 Hr 240 mg PO DAILY 30 Days Qty: 30 RF: 0 Discontinued calcitonin (salmon) 200 unit/actuation [place],Non-Aerosol 1 sprays NASAL DAILY 30 Days RF: 0 lorazepam 0.5 mg Tablet 1 mg PO TID RF: 0 oxycodone-acetaminophen 10-325 mg Tablet 1 tab PO Q6H RF: 0 Referrals: UNKNOWN, [Primary Care Provider] - See Instructions Status ED Status: Left Department
== END 2018-04-08 16:23 ==
LOC: NEPD 21:03 → NEDA 04-06 10:01 → NEPFCDU 04-06 16:50
PROVIDERS: ADMIT Hospitalist; ATTEND Hospitalist

== ENCOUNTER 2018-04-08 15:36 | Inpatient (IN) ==
[2018-04-08] MEDS ORDERED: Haloperidol Inj 5 MG/ML Ampul IV.PUSH PRN (20:14)
[2018-04-08] MEDS ORDERED: LORazepam 1 MG Tablet PO PRN (20:14)
[2018-04-08] MEDS ORDERED: Bisacodyl 10 MG Supp RECTAL PRN (20:22)
[2018-04-08] MEDS ORDERED: Aluminum/Magnesium/Simethacone Susp 30 ML UDC PO PRN (20:22)
[2018-04-08] MEDS ORDERED: Rivaroxaban 20 MG Tablet PO SCH (21:00)
[2018-04-08] MEDS: Senna/Docusate Sodium 8.6/50 MG Tablet PO SCH (21:40)
[2018-04-08] MEDS: Acetaminophen 325 MG Tablet PO PRN (21:41)
[2018-04-09 07:19] LABS: Alanine Aminotransferase 27 U/L (12-78); Albumin 2.9 g/dL (3.4-5.0); Anion Gap 6 meq/L (5-15); Aspartate Aminotransferase 22 U/L (15-37); Blood Urea Nitrogen 15 mg/dL (7-18); Calcium 8.1 mg/dL (8.5-10.1); Carbon Dioxide 29.1 meq/L (21.0-32.0); Chloride 104 meq/L (98-107); Cholesterol 88 mg/dL (120-200); Glomerular Filtration Rate Greater Than 89 mL/min (>89); Glucose,Random 95 mg/dL (74-106); Potassium 3.7 meq/L (3.5-5.1); Sodium 139 meq/L (136-145); Triglycerides 64 mg/dL (42-150)
[2018-04-09 07:51] LABS: Alkaline Phosphatase 110 U/L (45-117); HDL Cholesterol 35.2 mg/dL (40.0-60.0); LDL Cholesterol,Calculated 40 mg/dL (0-99); Thyroid Stimulating Hormone 0.318 uIU/mL (0.358-3.740); Vitamin B12 349 pg/mL (193-986)
[2018-04-09] MEDS: Folic Acid 1 MG Tablet PO SCH (08:05)
[2018-04-09] MEDS: Senna/Docusate Sodium 8.6/50 MG Tablet PO SCH ×2 (08:05→20:08)
[2018-04-09] MEDS: Rivaroxaban 20 MG Tablet PO SCH (08:05)
[2018-04-09] MEDS: Gabapentin 300 MG Capsule PO SCH ×3 (08:05→17:31)
[2018-04-09] MEDS: dilTIAZem CD 240 MG Capsule PO SCH (08:06)
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
[2018-04-09 13:57] LABS: Hemoglobin A1c 5.4 % (4.3-6.0)
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
--- NOTE | 2018-04-10 09:52 | P.TTN ---
- Patient Problems Problems: 1. Discharge planning 2. Medication compliance 3. Knowledge deficit 4. Lack of coping skills - Progress Toward Goals Provider Present: Dr. Makenzie Cole (Patient needs to remain for further stabilization.) Psychiatric Counselors Present: Marcel Adan Jr., [facility] (Counselor has coordinated a discharge plan with the patient's son Jose Alberto King. Tentative discharge date Friday, April 13, 2018. Patient will take a [employer] bus [facility] Friday, April 13, 2018.) Group Spec/RT/OT/PAPPAS Present: ELYSE Rose (Patient attends groups and is appropriate at this time.) - Documentation Teaching Recipient: Patient
--- NOTE | 2018-04-10 10:35 | P.PNPSY ---
Subjective Chief Complaint: Porter Act Remarks: Patient seen and examined with nurse. Chart reviewed. Case discussed with nursing staff. Case discussed in treatment team. Counselor notes that he is working with patient's son in [place] on a discharge plan that would reunite patient with family in [place]. On my exam, patient is discharge focused. He complains of chronic back pain and is somewhat medication seeking. He denies SI. Becomes increasingly labile throughout the interview. No side effects from medications. No other physical complaints. Vital Signs Temp Pulse Resp BP Pulse Ox 04/10/18 06:00 98.2 F 110 H 18 148/51 H 98 04/09/18 16:55 97.8 F 73 17 144/74 H 99 Laboratory Results - last 24 hr 04/09/18 04/09/18 04/09/18 05:35 05:35 14:10 Hemoglobin A1c 5.4 Folate Greater than 20.0 H Free T4 1.25 HIV 1&2 Ab/P24 Ag 4thGn 04/09/18 14:10 Hemoglobin A1c Folate Free T4 HIV 1&2 Ab/P24 Ag 4thGn Nonreactive Labs reviewed. Review of Systems All other systems reviewed negative except as stated in HPI (Limitation: poor historian.) Mental Status Examination Appearance: Appropriate Consciousness: Alert Orientation: Person, Place, Date/Time Motor Activity: Normal gait, Other (No motoric abnormalities noted.) Speech: Unremarkable Language: Adequate Fund of Knowledge: Adequate Attention and Concentration: Other (Remain somewhat impaired) Mood: Anxious Affect: Labile (Mild) Thought Content: Preoccupations Hallucination Type: None Delusion Type: None Suicidal Ideation: No Homicidal Ideation: No Insight: Fair Judgment: Impulsive Assessment and Plan - Assessment (1) Adjustment disorder with mixed disturbance of emotions and conduct Code(s): F43.25 - Adjustment disorder with mixed disturbance of emotions and conduct Status: Acute (2) Alcohol use Code(s): Z78.9 - Other specified health status Status: Acute - Plan Plan: Continue Cymbalta as ordered. Add Lidoderm patch for complaints of back pain. Follow-up neuropsychological evaluation. Continue to monitor on the inpatient unit. Continue other care as ordered. Justification for Continued Inpatient Stay: Monitoring for impairment in safety. High risk for decompensation in less restrictive environment. Discharge Planning: Pending further observation. Possible discharge after the weekend. Request Healthcare Surrogate/Guardian Advocate?: No
[2018-04-10] MEDS: Gabapentin 300 MG Capsule PO SCH ×3 (10:47→18:00)
[2018-04-10] MEDS: Folic Acid 1 MG Tablet PO SCH (10:48)
[2018-04-10] MEDS: dilTIAZem CD 240 MG Capsule PO SCH (10:48)
[2018-04-10] MEDS: Senna/Docusate Sodium 8.6/50 MG Tablet PO SCH ×2 (10:48→20:07)
[2018-04-10] MEDS: Rivaroxaban 20 MG Tablet PO SCH (10:48)
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
[2018-04-10] MEDS: Lidocaine 5% Patch T-DERMAL SCH (12:57)
[2018-04-10] MEDS: Acetaminophen 325 MG Tablet PO PRN ×2 (13:02→20:07)
[2018-04-11] MEDS: Gabapentin 300 MG Capsule PO SCH ×3 (08:40→18:15)
[2018-04-11] MEDS: Rivaroxaban 20 MG Tablet PO SCH (08:40)
[2018-04-11] MEDS: dilTIAZem CD 240 MG Capsule PO SCH (08:40)
[2018-04-11] MEDS: Senna/Docusate Sodium 8.6/50 MG Tablet PO SCH ×2 (08:40→20:49)
[2018-04-11] MEDS: Lidocaine 5% Patch T-DERMAL SCH (08:41)
[2018-04-11] MEDS: Folic Acid 1 MG Tablet PO SCH (08:41)
[2018-04-11] MEDS: Acetaminophen 325 MG Tablet PO PRN ×2 (13:12→18:16)
--- NOTE | 2018-04-11 15:42 | P.PNPSY ---
Subjective Chief Complaint: Porter Act Remarks: Pt seen and discussed with staff. He was admitted for suicidal ideations. He has been compliant with medications and denies SI/HI. Mood has improved and he has been calm and cooperative. He reports that depression has decreased significantly. Mental Status Examination Appearance: Appropriate Consciousness: Alert Orientation: Person, Place, Date/Time Motor Activity: Normal gait, Other (No motoric abnormalities noted.) Speech: Unremarkable Language: Adequate Fund of Knowledge: Adequate Attention and Concentration: Other (fair) Memory: Unremarkable Mood: Appropriate Affect: Flat Thought Process & Associations: Linear Thought Content: Preoccupations Hallucination Type: None Delusion Type: None Suicidal Ideation: No Suicidal Plan: No Suicidal Intention: No Homicidal Ideation: No Homicidal Plan: No Homicidal Intention: No Insight: Fair Judgment: Impulsive Assessment and Plan - Assessment (1) Adjustment disorder with mixed disturbance of emotions and conduct Code(s): F43.25 - Adjustment disorder with mixed disturbance of emotions and conduct Status: Acute (2) Alcohol use Code(s): Z78.9 - Other specified health status Status: Acute - Plan Plan: Continue current tx plan Justification for Continued Inpatient Stay: risks of decompensation Request Healthcare Surrogate/Guardian Advocate?: No
[2018-04-11] MEDS: Melatonin 5 MG Tablet PO PRN (20:49)
[2018-04-12] MEDS: Acetaminophen 325 MG Tablet PO PRN ×3 (09:42→18:34)
[2018-04-12] MEDS: Gabapentin 300 MG Capsule PO SCH ×3 (09:42→17:56)
[2018-04-12] MEDS: dilTIAZem CD 240 MG Capsule PO SCH (09:42)
[2018-04-12] MEDS: Folic Acid 1 MG Tablet PO SCH (09:43)
[2018-04-12] MEDS: Lidocaine 5% Patch T-DERMAL SCH (09:43)
[2018-04-12] MEDS: Rivaroxaban 20 MG Tablet PO SCH (09:43)
[2018-04-12] MEDS: Senna/Docusate Sodium 8.6/50 MG Tablet PO SCH ×2 (09:44→20:25)
--- NOTE | 2018-04-12 14:44 | P.PNPSY ---
Subjective Chief Complaint: Porter Act Remarks: Reviewed electronic medical records and discussed with nursing staff. Rounded with [facility] [place]. Patient in his room. He is preoccupied with going to [place] to be with his family. He feels like he has improved. He is a little anxious. He has a plan to take the bus and his son is going to meet him. He has called the train station. He is cooperative. Eating and sleeping well. Feels his medications are working. Review of Systems All other systems reviewed negative except as stated in HPI Mental Status Examination Appearance: Appropriate Consciousness: Alert Orientation: Person, Place, Date/Time Motor Activity: Normal gait, Other (No motoric abnormalities noted.) Speech: Unremarkable Language: Adequate Fund of Knowledge: Adequate Attention and Concentration: Other (fair) Memory: Unremarkable Mood: Appropriate Affect: Appropriate Thought Process & Associations: Linear Thought Content: Preoccupations (with moving to [place] ) Hallucination Type: None Delusion Type: None Suicidal Ideation: No Suicidal Plan: No Suicidal Intention: No Homicidal Ideation: No Homicidal Plan: No Homicidal Intention: No Insight: Fair Judgment: Impulsive Assessment and Plan - Assessment (1) Adjustment disorder with mixed disturbance of emotions and conduct Code(s): F43.25 - Adjustment disorder with mixed disturbance of emotions and conduct Status: Acute (2) Alcohol use Code(s): Z78.9 - Other specified health status Status: Acute - Plan Plan: Continue current tx plan Justification for Continued Inpatient Stay: Moving patient to a less restrictive environment may result in his decompensation. Request Healthcare Surrogate/Guardian Advocate?: No
[2018-04-12] MEDS: Melatonin 5 MG Tablet PO PRN (20:34)
[2018-04-13] MEDS: Acetaminophen 325 MG Tablet PO PRN ×2 (03:25→03:30)
[2018-04-13] MEDS: Folic Acid 1 MG Tablet PO SCH (08:39)
[2018-04-13] MEDS: Gabapentin 300 MG Capsule PO SCH (08:39)
[2018-04-13] MEDS: dilTIAZem CD 240 MG Capsule PO SCH (08:39)
[2018-04-13] MEDS: Rivaroxaban 20 MG Tablet PO SCH (08:39)
[2018-04-13] MEDS: Lidocaine 5% Patch T-DERMAL SCH (08:40)
[2018-04-13] MEDS: Senna/Docusate Sodium 8.6/50 MG Tablet PO SCH (08:47)
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
== END 2018-04-13 11:30 | disposition home or self-care (01) ==
LOC: H270 16:45
PROVIDERS: ADMIT Psychiatry & Neurology Psychiatry; ATTEND Psychiatry & Neurology Psychiatry
DX: Z72.89 Other problems related to lifestyle; M81.0 Age-related osteoporosis without current pathological fracture; F32.9 Major depressive disorder, single episode, unspecified; I25.10 Atherosclerotic heart disease of native coronary artery without angina pectoris; I69.354 Hemiplegia and hemiparesis following cerebral infarction affecting left non-dominant side; E78.00 Pure hypercholesterolemia, unspecified; G89.29 Other chronic pain; F43.25 Adjustment disorder with mixed disturbance of emotions and conduct; M54.5 Low back pain; R45.851 Suicidal ideations; Z82.3 Family history of stroke; I48.91 Unspecified atrial fibrillation; M51.36 Other intervertebral disc degeneration, lumbar region; Z91.14 Patient's other noncompliance with medication regimen; Z79.01 Long term (current) use of anticoagulants; Z76.5 Malingerer [conscious simulation]; Z87.891 Personal history of nicotine dependence; Z87.311 Personal history of (healed) other pathological fracture; I10 Essential (primary) hypertension; I25.2 Old myocardial infarction